=== PATIENT | female | born 1960 | race Caucasian/White ===

== ENCOUNTER 2022-11-24 09:28 | Outpatient (OUT) | payer OTHER, SELFPAY ==
[2022-11-24 10:09] LABS: Estimated Average Glucose 108 mg/dL; Glycohemoglobin A1C 5.4 % (4.5-6.2)
[2022-11-24 10:12] LABS: Basophils Absolute Auto 0.1 10^3/uL (0.0-0.1); Basophils Percent Auto 0.7 % (0.2-2.0); Eosinophils Absolute Auto 0.1 10^3/uL (0.0-0.7); Eosinophils Percent Auto 1.9 % (0.9-7.0); Hemoglobin 14.8 g/dL (12.0-16.0); Immature Granulocytes Abs Auto 0.02 10^3/uL (0.00-0.03); Immature Granulocytes Pct Auto 0.3 % (0.0-0.5); Lymphocytes Absolute Auto 2.1 10^3/uL (1.2-3.8); Lymphocytes Percent Auto 28.1 % (20.5-60.0); Mean Corpuscular HGB Conc 32.9 g/dL (29.9-35.2); Mean Corpuscular Hemoglobin 32.3 pg (26.7-34.0); Mean Corpuscular Volume 98.3 fL (81.0-99.0); Mean Platelet Volume 10.2 fL (9.5-13.5); Monocytes Absolute Auto 0.6 10^3/uL (0.3-0.8); Monocytes Percent Auto 7.7 % (1.7-12.0); Neutrophils Absolute Auto 4.6 10^3/uL (1.4-6.5); Neutrophils Percent Auto 61.3 % (43.0-75.0); Platelet Count 322 10^3/uL (150-450); Red Blood Count 4.58 10^6/uL (4.20-5.40); Red Cell Distribution Width 13.2 % (11.0-15.0); White Blood Count 7.6 10^3/uL (4.0-11.0)
[2022-11-24 10:25] LABS: Alanine Aminotransferase 74 U/L (14-59); Albumin Globulin Ratio 0.8; Albumin Level 3.3 g/dL (3.4-5.0); Alkaline Phosphatase 86 U/L (46-116); Anion Gap 10.9; Aspartate Amino Transferase 36 U/L (15-37); Bilirubin Total 0.5 mg/dL (0.2-1.0); Calcium 9.3 mg/dL (8.5-10.1); Carbon Dioxide 26.1 mmol/L (21.0-32.0); Chloride 104 mmol/L (98-107); Chol HDL Ratio 5.2; Cholesterol 239 mg/dL (<=200); Estimated GFR (African America >60 (>=60); Estimated GFR (Non-African Ame >60 (>=60); Free T3 2.32 pg/mL (2.18-3.98); Glucose 102 mg/dL (74-106); HDL Cholesterol 46 mg/dL (40-60); Sodium 137 mmol/L (136-145); Thyroid Stimulating Hormone 2.595 uIU/mL (0.358-3.740); Total Protein 7.3 g/dL (6.4-8.2); Triglycerides 129 mg/dL (<=150); VLDL CHOLESTEROL 25.8 mg/dL
[2022-11-25 11:09] LABS: Insulin 70.6 uIU/mL (2.6-24.9)
== END 2022-11-24 09:29 | disposition home or self-care (01) ==
PROVIDERS: PCP Family Medicine; Visit Provider Family Medicine
DX: Z00.00 Encounter for general adult medical examination without abnormal findings (principal); E78.5 Hyperlipidemia, unspecified; R73.09 Other abnormal glucose; Z12.12 Encounter for screening for malignant neoplasm of rectum; D64.9 Anemia, unspecified
CPT/HCPCS: 36415; 80053; 80061; 83036; 83525; 83540; 84436; 84443; 84481; 85025

== ENCOUNTER 2022-11-25 14:07 | Outpatient (REF) | payer OTHER, SELFPAY ==
[2022-11-25 15:47] LABS: Occult Blood Negative
== END 2022-11-25 14:08 | disposition home or self-care (01) ==
LOC: LAB 14:07
PROVIDERS: PCP Family Medicine; Visit Provider Family Medicine
DX: Z12.12 Encounter for screening for malignant neoplasm of rectum (principal)
CPT/HCPCS: G0328

== ENCOUNTER 2023-06-01 12:01 | Outpatient (OUT) | payer OTHER, SELFPAY ==
[2023-06-01 13:08] LABS: Bilirubin Urine NEGATIVE (NEGATIVE); Blood Urine NEGATIVE (NEGATIVE); Clarity Urine CLEAR (CLEAR); Color Urine LT. YELLOW (YELLOW); Glucose Urine UA NEGATIVE (NEGATIVE); Ketones Urine NEGATIVE (NEGATIVE); Leukocyte Esterase Urine NEGATIVE (NEGATIVE); Nitrite Urine NEGATIVE (NEGATIVE); Protein Urine NEGATIVE (NEG/TRACE); Specific Gravity Urine 1.025 (1.005-1.025); Urobilinogen Urine 0.2 EU/dL (0.2-1.0)
[2023-06-01 13:16] LABS: Bacteria Urine TRACE #/HPF (NONE SEEN); Cast Seen? NONE SEEN #/LPF (NONE SEEN); Crystals Seen? None Seen #/HPF (None Seen); Mucus Urine TRACE (NONE SEEN); RBC Urine 0-2 #/HPF (0-2); Squamous Epithelial Cell Urine FEW #/LPF (NONE/RARE); WBC Urine 0-2 #/HPF (NONE SEEN)
== END 2023-06-01 12:02 | disposition home or self-care (01) ==
LOC: LAB 12:05
PROVIDERS: PCP Family Medicine; Visit Provider Family Medicine
DX: N39.0 Urinary tract infection, site not specified (principal)
CPT/HCPCS: 81001; 87086

== ENCOUNTER 2023-11-25 09:40 | Outpatient (OUT) | payer OTHER, SELFPAY ==
[2023-11-25 10:28] LABS: Basophils Absolute Auto 0.1 10^3/uL (0.0-0.1); Basophils Percent Auto 0.6 % (0.2-2.0); Eosinophils Absolute Auto 0.2 10^3/uL (0.0-0.7); Eosinophils Percent Auto 2.1 % (0.9-7.0); Hematocrit 45.7 % (36.0-48.0); Hemoglobin 15.2 g/dL (12.0-16.0); Immature Granulocytes Abs Auto 0.02 10^3/uL (0.00-0.03); Immature Granulocytes Pct Auto 0.2 % (0.0-0.5); Lymphocytes Absolute Auto 2.5 10^3/uL (1.2-3.8); Lymphocytes Percent Auto 29.7 % (20.5-60.0); Mean Corpuscular HGB Conc 33.3 g/dL (29.9-35.2); Mean Corpuscular Hemoglobin 33.2 pg (26.7-34.0); Mean Corpuscular Volume 99.8 fL (81.0-99.0); Mean Platelet Volume 10.5 fL (9.5-13.5); Monocytes Absolute Auto 0.8 10^3/uL (0.3-0.8); Monocytes Percent Auto 8.8 % (1.7-12.0); Neutrophils Percent Auto 58.6 % (43.0-75.0); Platelet Count 285 10^3/uL (150-450); Red Blood Count 4.58 10^6/uL (4.20-5.40); Red Cell Distribution Width 13.1 % (11.0-15.0); White Blood Count 8.5 10^3/uL (4.0-11.0)
[2023-11-25 11:04] LABS: Estimated Average Glucose 108 mg/dL; Glycohemoglobin A1C 5.4 % (4.5-6.2)
[2023-11-25 11:18] LABS: Alanine Aminotransferase 72 U/L (14-59); Albumin Globulin Ratio 0.8; Albumin Level 3.2 g/dL (3.4-5.0); Alkaline Phosphatase 89 U/L (46-116); Anion Gap 11.4; Aspartate Amino Transferase 31 U/L (15-37); BUN Creatinine Ratio 24.4; Bilirubin Total 0.5 mg/dL (0.2-1.0); Calcium 9.3 mg/dL (8.5-10.1); Carbon Dioxide 28.9 mmol/L (21.0-32.0); Chloride 105 mmol/L (98-107); Chol HDL Ratio 4.4; Cholesterol 233 mg/dL (<=200); Estimated GFR (African America >60 (>=60); Estimated GFR (Non-African Ame >60 (>=60); Free T3 2.49 pg/mL (2.18-3.98); Globulin 3.9 g/dL; Glucose 104 mg/dL (74-106); HDL Cholesterol 53 mg/dL (40-60); Potassium 4.3 mmol/L (3.5-5.1); Sodium 141 mmol/L (136-145); Thyroid Stimulating Hormone 2.679 uIU/mL (0.358-3.740); Total Protein 7.1 g/dL (6.4-8.2); Triglycerides 130 mg/dL (<=150)
[2023-11-25 14:24] LABS: Internal Control Within Normal Limits; Occult Blood Positive
== END 2023-11-25 09:41 | disposition home or self-care (01) ==
PROVIDERS: PCP Family Medicine; Visit Provider Family Medicine
DX: Z00.00 Encounter for general adult medical examination without abnormal findings (principal); Z12.31 Encounter for screening mammogram for malignant neoplasm of breast; Z80.3 Family history of malignant neoplasm of breast; Z80.51 Family history of malignant neoplasm of kidney; R53.83 Other fatigue
CPT/HCPCS: 36415; 77063; 77067; 80053; 80061; 83036; 83540; 84436; 84443; 84481; 85025; G0328

== ENCOUNTER 2023-11-25 13:46 | Outpatient (OUT) | payer OTHER, SELFPAY ==
--- NOTE | 2023-11-25 13:51 | MM_ITS ---
Patient Name: JESSY BARBER MR#: [id number] : 1960 Exam Date: 11/25/2023 Ordering Doctor: DR NIXON MCINTYRE . RADIOLOGY REPORT PROCEDURE: MM TOMOSYNTHESIS SCREENING BI COMPARISON: MG MAMM SCREEN 3D SOFIA CAD, 03/19/2022. MG MAMM SCREEN 3D SOFIA CAD, 03/06/2021. INDICATIONS: Screening mammogram Calculator Name NCI Breast Cancer Risk Assessment Tool 5 Year Breast Cancer Risk 2.00% Lifetime Breast Cancer Risk 7.60% Personal Breast Cancer No Personal Ovarian Cancer No Treatments None Family Cancers Sister with renal cancer at age ~45; Aunt-paternal with breast cancer at age ~50. LOCATION: [facility] BREAST COMPOSITION: There are scattered areas of fibroglandular density. FINDINGS: DIAGNOSTIC CATEGORY 2--BENIGN FINDING: Scattered benign-appearing calcifications are present. Scattered benign-appearing lymph nodes are present. RIGHT BREAST: No significant suspicious finding. LEFT BREAST: No significant suspicious finding. RECOMMENDATIONS: ROUTINE MAMMOGRAM AND CLINICAL EVALUATION IN 12 MONTHS. PLEASE NOTE: A NORMAL MAMMOGRAM DOES NOT EXCLUDE THE POSSIBILITY OF BREAST CANCER. A CLINICALLY SUSPICIOUS PALPABLE LUMP SHOULD BE BIOPSIED. Dictated by: Josue Gonzalez MD on 11/25/2023 at 15:34 Approved by: Josue Gonzalez MD on 11/25/2023 at 15:35
== END 2023-11-25 13:47 | disposition home or self-care (01) ==
LOC: MAMMO 13:47
PROVIDERS: PCP Family Medicine; Visit Provider Family Medicine
DX: Z12.31 Encounter for screening mammogram for malignant neoplasm of breast (principal); Z80.3 Family history of malignant neoplasm of breast; Z80.51 Family history of malignant neoplasm of kidney
CPT/HCPCS: 77063; 77067

== ENCOUNTER 2023-12-13 13:45 | Outpatient (OUT) | payer OTHER, SELFPAY | END 2023-12-13 13:46 | disposition home or self-care (01) | LOC: PST 13:45 | PROVIDERS: PCP Family Medicine; Visit Provider Surgery | DX: Z01.818 Encounter for other preprocedural examination (principal); R19.5 Other fecal abnormalities ==

== ENCOUNTER 2023-12-15 08:42 | Day surgery (SDC) | payer OTHER, SELFPAY ==
--- NOTE | 2023-12-15 | OP_ITS ---
OPERATION DATE: 12/15/2023 PREOPERATIVE DIAGNOSIS: Positive fecal occult blood test. POSTOPERATIVE DIAGNOSIS: Moderate sigmoid diverticulosis. PROCEDURE: Colonoscopy to cecum. SURGEON: Ta Akers M.D. ANESTHESIA: Monitored anesthesia care. ESTIMATED BLOOD LOSS: Zero INDICATIONS AND CONSENT: Patient is a 63-year-old female with recent positive fecal occult blood test. Indications, risks, benefits, alternatives of proceeding with colonoscopy were explained extensively to the patient, including the risks of bleeding, colon perforation or anesthetic complications. All of her questions were answered. Informed consent was obtained. PROCEDURE: Patient brought to the operating room, placed in the left lateral decubitus position. Monitored anesthesia care was provided. Rectal exam was performed which revealed no masses or blood. The scope was inserted into the anal canal. Under direct visualization was advanced. She was noted to have a tortuous sigmoid colon with moderate sigmoid diverticula. With the aid of abdominal compression, the scope was able to be advanced to the cecum where cecal markings were clearly identified. There was noted to be a good prep. Upon withdrawal of the scope, mucosal surfaces were carefully examined. There were no mass lesions or polyps. No inflammatory changes or ulcerations. There was moderate sigmoid diverticulosis. The scope was retroflexed in the anal canal. There was no significant hemorrhoidal disease. Scope was then withdrawn. Patient tolerated procedure well, was sent to recovery room in good condition. f/u screening colonoscopy should be in 10 years. CC: Holden Benitez M.D. MTDD
--- OUTSIDE RECORDS SUMMARY | 2023-12-15 08:48 | XMS_ITS | CCD ---
Author Organization [facility] Care Team Providers Care Blockmason Name Role Phone DR NIXON BENITEZ Attending Unavailable HOY, DR ALICEA Primary Care Unavailable HOY, DR ALICEA Admitting Unavailable HOKamilah, DR ALICEA Attending Unavailable MIGUELINA, DR ALICEA Consulting Unavailable JASY, DR ALICEA Primary Care Unavailable HOY, DR ALICEA Admitting Unavailable HOY, DR ALICEA Consulting Unavailable JASY, DR ALICEA Primary Care Unavailable HOY, DR ALICEA Admitting Unavailable MIGUELINA, DR ALICEA Attending Unavailable MIGUELINA, DR ALICEA Primary Care Unavailable MIGUELINA, DR ALICEA Admitting Unavailable MIGUELINA, DR ALICEA Attending Unavailable Ta CONDE Attending Unavailable Nixon Benitez Referring Unavailable Allergies Allergy Classification Reported Allergen(s) Allergy Type Date of Onset Reaction(s) Facility (2 sources) Penicillins Drug allergy (disorder) 11-30-2014 [facility] Repository (1 source) Penicillin; Translations: [penicillin] Drug Allergy [facility] Repository (1 source) Ramipril; Translations: [Altace] Drug Allergy [facility] Repository Results Test Name Value Interpretation Reference Range Facility Ambulatory Visit Summaryon Ambulatory Visit Summary Ambulatory Visit Summary JESSY BARBER :1960 Visit Date:12/09/2023 Ambulatory Visit Instructions Your Diagnosis Positive fecal occult blood test Your Care Team Attending Physician - Ta CONDE MD Primary Care Physician - Nixon Benitez MD Referring Physician - Nixon Benitez MD This Is Your Medications List Contact prescribing physician if questions or concerns carvedilol (carvedilol 6.25 mg Tab) hydrochlorothiazide (hydrochlorothiazide 12.5 mg Tab) meloxicam (meloxicam 15 mg Tab) multivitamin (Multi Vitamins oral tablet) simvastatin (simvastatin 20 mg Tab) Procedures Performed Appendectomy, Colonoscopy, ABEBE BSO - Total abdominal hysterectomy and bilateral salpingo-oophorectomy. Discharge Vitals Heart Rate (Peripheral) 79 Respiratory Rate 16 Blood Pressure 159/85 Height 167.6 cm Height 66 in Weight 143.1 kg Weight 314.82 lb BMI 50.94 Medications What How Much When Instructions Unchanged carvedilol (carvedilol 6.25 mg Tab) 1 Tablets By Mouth 2 times a day Contact prescribing physician if questions or concerns Unchanged hydrochlorothiazide (hydrochlorothiazide 12.5 mg Tab) 1 Tablets By Mouth Every day Contact prescribing physician if questions or concerns Unchanged meloxicam (meloxicam 15 mg Tab) 1 Tablets By Mouth Every day Contact prescribing physician if questions or concerns Unchanged multivitamin (Multi Vitamins oral tablet) 1 Tablets By Mouth Every day Contact prescribing physician if questions or concerns Unchanged simvastatin (simvastatin 20 mg Tab) 1 Tablets By Mouth Once a day (in the evening) Contact prescribing physician if questions or concerns Allergies Altace (Cough) penicillin (Rash) Problems Ongoing - Any problem that you are currently receiving treatment for. Anxiety BMI 50.0-59.9, adult Class 3 obesity Degeneration of intervertebral disc Essential hypertension Hyperlipidemia Lumbar spondylosis Occult blood positive stool Positive fecal occult blood test Sleep apnea Patient Survey You may receive a survey via text or e-mail asking about your office visit. Please share your experience with us by completing your survey. We appreciate your feedback and thank you for choosing us for your care. [facility] MG MAMM SCREEN 3D SOFIA CADon 03-19-2022 MG MAMM SCREEN 3D SOFIA CAD Patient: JESSY BARBER Exam Date: 03/19/2022 : 1960 Gender:F Ordering : DR NIXON BENITEZ . Admission #: [id number] Family : Order #: [id number] CLICK HERE TO VIEW EXAM RADIOLOGY REPORT PROCEDURE: MAMMOGRAM SCREENING 3D BILATERAL CAD COMPARISON: MG MAMM SCREEN SOFIA W CAD, 03/04/2020. MG MAMM SCREEN SOFIA W CAD, 02/27/2019. DIGITIZED_MAMMO, 09/04/2008. MG MAMM SCREEN 3D SOFIA CAD, 03/06/2021. INDICATIONS: Screening mammography Calculator Name NCI Breast Cancer Risk Assessment Tool 5 Year Breast Cancer Risk 2.00% Lifetime Breast Cancer Risk 7.90% Personal Breast Cancer No Personal Ovarian Cancer No Treatments None Family Cancers Sister with renal cancer at age 45; Aunt-paternal with breast cancer at age 50. LOCATION: [facility] BREAST COMPOSITION: Scattered areas fibroglandular density. FINDINGS: DIAGNOSTIC CATEGORY 2--BENIGN FINDING: RIGHT BREAST: No significant suspicious finding. Scattered benign-appearing nodules are present. No significant change has occurred. LEFT BREAST: No significant suspicious finding. Scattered benign-appearing nodules are present. No significant change has occurred. RECOMMENDATIONS: ROUTINE MAMMOGRAM AND CLINICAL EVALUATION IN 12 MONTHS. PLEASE NOTE: A NORMAL MAMMOGRAM DOES NOT EXCLUDE THE POSSIBILITY OF BREAST CANCER. A CLINICALLY SUSPICIOUS PALPABLE LUMP SHOULD BE BIOPSIED. Dictated by: Deo Wilkes M.D. on 03/20/2022 at 09:12 Approved by: Deo Wilkes M.D. on 03/20/2022 at 09:17 Normal [facility] INSULINon 12-06-2021 Insulin 51.1 uIU/mL Critically high 2.6-24.9 [facility] Comment on above: Performed By: #### I NSULIN #### [facility] [address] [place] [address] Dr. Marco Antonio Butler T4, T3U, FTI LABCORPon 12-06 Free Thyroxine Index 2.1 Normal 1.2-4.9 [facility] Comment on above: Performed By: #### T HYLC #### [facility] [address] [place] [address] Dr. Marco Antonio Butler T3 Uptake 26 % Normal 24-39 [facility] Comment on above: Performed By: #### T HYLC #### [facility] [address] [place] [address] Dr. Marco Antonio Butler T4 [Mass/Vol] 8.0 ug/dL Normal 4.5-12.0 [facility] Comment on above: Performed By: #### T HYLC #### [facility] [address] [place] [address] Dr. Marco Antonio Butler CBC AUTO DIFFon 12-05-2021 BASO # 0.1 103/ul Normal 0.0-0.1 [facility] Comment on above: Performed By: #### C BC #### [facility] [address] [place] [address] Dr. Marco Antonio Butler Basophils/100 WBC (Bld) 0.6 % Normal 0.2-2.0 [facility] Comment on above: Performed By: #### C BC #### [facility] [address] [place] [address] Dr. Marco Antonio Butler EO # 0.2 103/ul Normal 0.0-0.7 [facility] Comment on above: Performed By: #### C BC #### [facility] [address] [place] [address] Dr. Marco Antonio Butler Eosinophils/100 WBC (Bld) 2.4 % Normal 0.9-7.0 [facility] Comment on above: Performed By: #### C BC #### [facility] [address] [place] [address] Dr. Marco Antonio Butler Erythrocyte distribution width (RBC) [Ratio] 13.2 % Normal 11.0-15.0 [facility] Comment on above: Performed By: #### C BC #### [facility] [address] [place] [address] Dr. Marco Antonio Butler Hematocrit (Bld) [Volume fraction] 42.8 % Normal 36.0-48.0 [facility] Comment on above: Performed By: #### C BC #### [facility] [address] [place] [address] Dr. Marco Antonio Butler Hemoglobin (Bld) [Mass/Vol] 14.1 g/dL Normal 12.0-16.0 [facility] Comment on above: Performed By: #### C BC #### [facility] [address] [place] [address] Dr. Marco Antonio Butler IG # 0.03 10e3/ul Normal 0.00-0.03 [facility] Comment on above: Performed By: #### C BC #### [facility] [address] [place] [address] Dr. Marco Antonio Butler IG % 0.4 % Normal 0.0-0.5 [facility] Comment on above: Performed By: #### C BC #### [facility] [address] [place] [address] Dr. Marco Antonio Butler LYMPH # 2.0 103/ul Normal 1.2-3.8 [facility] Comment on above: Performed By: #### C BC #### [facility] [address] [place] [address] Dr. Marco Antonio Butler Lymphocytes/100 WBC (Bld) 25.1 % Normal 20.5-60.0 [facility] Comment on above: Performed By: #### C BC #### [facility] [address] [place] [address] Dr. Marco Antonio Butler MANUAL DIFF REQ NO Normal [facility] Comment on above: Performed By: #### C BC #### [facility] [address] [place] [address] Dr. Marco Antonio Butler MCH (RBC) [Entitic mass] 32.0 pg Normal 26.7-34.0 [facility] Comment on above: Performed By: #### C BC #### [facility] [address] [place] [address] Dr. Marco Antonio Butler MCHC (RBC) [Mass/Vol] 32.9 g/dL Normal 29.9-35.2 [facility] Comment on above: Performed By: #### C BC #### [facility] [address] [place] [address] Dr. Marco Antonio Butler MCV (RBC) [Entitic vol] 97.3 fL Normal 81.0-99.0 [facility] Comment on above: Performed By: #### C BC #### [facility] [address] [place] [address] Dr. Marco Antonio Butler MONO # 0.7 103/ul Normal 0.3-0.8 [facility] Comment on above: Performed By: #### C BC #### [facility] [address] [place] [address] Dr. Marco Antonio Butler Monocytes/100 WBC (Bld) 9.0 % Normal 1.7-12.0 [facility] Comment on above: Performed By: #### C BC #### [facility] [address] [place] [address] Dr. Marco Antonio Butler NEUT # 5.0 103/ul Normal 1.4-6.5 [facility] Comment on above: Performed By: #### C BC #### [facility] [address] [place] [address] Dr. Marco Antonio Butler Neutrophils/100 WBC (Bld) 62.5 % Normal 43.0-75.0 [facility] Comment on above: Performed By: #### C BC #### [facility] [address] [place] [address] Dr. Marco Antonio Butler Platelet mean volume (Bld) [Entitic vol] 10.5 fL Normal 9.5-13.5 [facility] Comment on above: Performed By: #### C BC #### [facility] [address] [place] [address] Dr. Marco Antonio Butler PLT 315 103/ul Normal 150-450 [facility] Comment on above: Performed By: #### C BC #### [facility] [address] [place] [address] Dr. Marco Antonio Butler RBC 4.40 106/ul Normal 4.20-5.40 [facility] Comment on above: Performed By: #### C BC #### [facility] [address] [place] [address] Dr. Marco Antonio Butler WBC 8.0 103/ul Normal 4.0-11.0 [facility] Comment on above: Performed By: #### C BC #### [facility] [address] [place] [address] Dr. Marco Antonio Butler GLYCOHEMOGLOBIN A1Con 2021 ADA RECOMMENDATION SEE BELOW Normal [facility] Comment on above: Result Comment: ADA RECOMMENDED LIMIT 4.0 - 6.0 ADA THERAPEUTIC TARGET < 7.0 ACTION SUGGESTED > 7.0 Performed By: #### A 1C #### [facility] [address] [place] [address] Dr. Marco Antonio Butler Glucose [Mass/Vol] 120 mg/dL Normal [facility] Comment on above: Performed By: #### A 1C #### [facility] [address] [place] [address] Dr. Marco Antonio Butler HbA1c (Bld) [Mass fraction] 5.8 % Normal 4.5-6.2 [facility] Comment on above: Performed By: #### A 1C #### [facility] [address] [address] [address] Marco Antonio Butler IRONon 12-05-2021 Iron [Mass/Vol] 97.0 ug/dL Normal 50.0-170.0 [facility] Comment on above: Performed By: #### I DAVID #### [facility] [address] [address] [address] Marco Antonio Butler LIPID PROFILEon 12-05-2021 CHOL-HDL RATIO NORM SEE BELOW Normal [facility] Comment on above: Result Comment: 3.3 - 4.4 LOW RISK 4.4 - 7.1 AVERAGE RISK 7.1 - 11.0 MODERATE RISK >11.0 HIGH RISK Performed By: #### L IPID, TSH, CMP #### [facility] [address] [address] [address] Marco Antonio Butler Cholesterol [Mass/Vol] 237 mg/dL Critically high <=200 [facility] Comment on above: Performed By: #### L IPID, TSH, CMP #### [facility] [address] [address] [address] Marco Antonio Butler Cholesterol in HDL [Mass/Vol] 44 mg/dL Normal 40-60 [facility] Comment on above: Performed By: #### L IPID, TSH, CMP #### [facility] [address] [address] [address] Marco Antonio Butler Cholesterol in LDL [Mass/Vol] 163.4 mg/dL Normal [facility] Comment on above: Performed By: #### L IPID, TSH, CMP #### [facility] [address] [address] [address] Marco Antonio Butler Cholesterol.total/Ch olesterol in HDL [Mass ratio] 5.4 {ratio} Normal [facility] Comment on above: Performed By: #### L IPID, TSH, CMP #### [facility] [address] [address] [address] Marco Antonio Butler HDL NORMAL > or = 60 mg/dl - LO W CARDIOVASCULAR RISK <40 mg/dl - HIGH CARDIOVASCULAR RISK Normal [facility] Comment on above: Performed By: #### L IPID, TSH, CMP #### [facility] [address] [address] [address] Marco Antonio Butler LDL CALC NORMAL SEE BELOW Normal [facility] Comment on above: Result Comment: <100 mg/dl OPTIMAL 100 - 129 mg/dl NEAR OR ABOVE OPTIMAL 130 - 159 mg/dl BORDERLINE HIGH 160 - 189 mg/dl HIGH >190 mg/dl VERY HIGH Performed By: #### L IPID, TSH, CMP #### [facility] [address] [address] [address] Marco Antonio Butler Triglyceride [Mass/Vol] 148 mg/dL Normal <=150 [facility] Comment on above: Performed By: #### L IPID, TSH, CMP #### [facility] [address] [address] [address] Marco Antonio Butler VLDL CALC 29.6 mg/dL Normal [facility] Comment on above: Performed By: #### L IPID, TSH, CMP #### [facility] [address] [address] [address] Marco Antonio Butler PROF 14(COMP METB)on 022 Albumin [Mass/Vol] 3.3 g/dL Critically low 3.4-5.0 [facility] Comment on above: Performed By: #### L IPID, TSH, CMP #### [facility] [address] [address] [address] Marco Antonio Butler Albumin/Globulin [Mass ratio] 0.9 {ratio} Normal [facility] Comment on above: Performed By: #### L IPID, TSH, CMP #### [facility] [address] [address] [address] Marco Antonio Butler ALP [Catalytic activity/Vol] 90 U/L Normal 46-116 [facility] Comment on above: Performed By: #### L IPID, TSH, CMP #### [facility] [address] [address] [address] Marco Antonio Butler ALT [Catalytic activity/Vol] 53 U/L Normal 14-59 [facility] Comment on above: Performed By: #### L IPID, TSH, CMP #### [facility] [address] [address] [address] Marco Antonio Butler Anion gap [Moles/Vol] 8.3 mmol/L Normal [facility] Comment on above: Performed By: #### L IPID, TSH, CMP #### [facility] [address] [address] [address] Marco Antonio Butler AST [Catalytic activity/Vol] 24 U/L Normal 15-37 [facility] Comment on above: Performed By: #### L IPID, TSH, CMP #### [facility] [address] [place] [address] Dr. Marco Antonio Butler Bilirubin [Mass/Vol] 0.4 mg/dL Normal 0.2-1.0 [facility] Comment on above: Performed By: #### L IPID, TSH, CMP #### [facility] [address] [place] [address] Dr. Marco Antonio Butler Calcium [Mass/Vol] 9.1 mg/dL Normal 8.5-10.1 [facility] Comment on above: Performed By: #### L IPID, TSH, CMP #### [facility] [address] [place] [address] Dr. Marco Antonio Butler Chloride [Moles/Vol] 103 mmol/L Normal 98-107 [facility] Comment on above: Performed By: #### L IPID, TSH, CMP #### [facility] [address] [place] [address] Dr. Marco Antonio Butler CO2 [Moles/Vol] 30.8 mmol/L Normal 21.0-32.0 [facility] Comment on above: Performed By: #### L IPID, TSH, CMP #### [facility] [address] [place] [address] Dr. Marco Antonio Butler Creatinine [Mass/Vol] 0.88 mg/dL Normal 0.55-1.02 [facility] Comment on above: Performed By: #### L IPID, TSH, CMP #### [facility] [address] [address] [address] Marco Antonio Butler EGFR-AF BRITISH >60 Normal >=60 [facility] Comment on above: Performed By: #### L IPID, TSH, CMP #### [facility] [address] [address] [address] Marco Antonio Butler EGFR-NON AF BRITISH >60 Normal >=60 [facility] Comment on above: Performed By: #### L IPID, TSH, CMP #### [facility] [address] [address] [address] Marco Antonio Butler Globulin (S) [Mass/Vol] 3.8 g/dL Normal [facility] Comment on above: Performed By: #### L IPID, TSH, CMP #### [facility] [address] [place] [address] Dr. Marco Antonio Butler Glucose [Mass/Vol] 106 mg/dL Normal 74-106 [facility] Comment on above: Performed By: #### L IPID, TSH, CMP #### [facility] [address] [place] [address] Dr. Marco Antonio Butler Potassium [Moles/Vol] 4.1 mmol/L Normal 3.5-5.1 [facility] Comment on above: Performed By: #### L IPID, TSH, CMP #### [facility] [address] [place] [address] Dr. Marco Antonio Butler Protein [Mass/Vol] 7.1 g/dL Normal 6.4-8.2 [facility] Comment on above: Performed By: #### L IPID, TSH, CMP #### [facility] [address] [place] [address] Dr. Marco Antonio Butler Sodium [Moles/Vol] 138 mmol/L Normal 136-145 [facility] Comment on above: Performed By: #### L IPID, TSH, CMP #### [facility] [address] [place] [address] Dr. Marco Antonio Butler Urea nitrogen [Mass/Vol] 18.0 mg/dL Normal 7.0-18.0 [facility] Comment on above: Performed By: #### L IPID, TSH, CMP #### [facility] [address] [place], [place] [address] Dr. Marco Antonio Butler Urea nitrogen/Creatinine [Mass ratio] 20.5 mg/mg Normal [facility] Comment on above: Performed By: #### L IPID, TSH, CMP #### [facility] [address] [place], [place] [address] Dr. Marco Antonio Butler TSHon 12-05-2021 TSH 2.111 uIU/mL Normal 0.358-3.740 [facility] Comment on above: Performed By: #### L IPID, TSH, CMP #### [facility] [address] [place], [place] [address] Dr. Marco Antonio Butler Encounters Encounter Date Encounter Type Care Provider Facility Start: 12-09-2023 End: 12-09-2023 ambulatory Ta CONDE Facility:[facility] Start: 11-29-2023 ambulatory Ta CONDE Facility:[facility] Start: 03-19-2022 End: 03-20-[address] NIXON BENITEZ Facility:[facility] Start: 01-21-[address] NIXON BENITEZ Facility :[facility] Start: 12-08-2021 Encounter for genera l adult medical examination without abnormal findings DR NIXON BENITEZ [facility] Start: 12-05-2021 End: 12-06-[address] NIXON BENITEZ Facility:[facility] Start: 12-05-2021 End: 12-06-2021 Encounter for general adult medical examination without abnormal findings DR NIXON BENITEZ Facility:[facility] Start: 04-08-[address] NIXON BENITEZ Facility :[facility] Payers Date Payer Category Payer Self-pay 1961 Unknown [id number] 1960 Unknown [id number] 2.16.84 [id number] 1960 Unknown [id number] 2.16.84 [id number] 1960 Unknown [id number] 2.16.84 [id number] 1960 Unknown [id number] 2.16.84 [id number] 1960 Unknown [id number] [id number] Clinical Note 12-09-2023 Note Date & Type Note Facility 12-09-2023 Note General Surgery Offi ce/Clinic Note Chief Complaint consultation for positive occult stool HPI Staff 63 year old female presents on consultation from Dr. Benitez for positive occult stool. Denies abdominal or rectal pain. No rectal bleeding or change in bowel habits. Denies nausea or vomiting. No unexplained weight loss. Last colonoscopy completed many years ago, reported normal per patient. Grandfather with history of colon cancer, age unknown. History of Present Illness 63 yo female with h/o htn, hyperlipidemia, morbid obesity, FANNY, anxiety, lumbar spondylosis, referred for positive fecal occult blood test; denies change in bms or gross blood in stools, no abd complaints; abd operations significant for appendectomy and hysterectomy; no previous colonoscopy; on Meloxicam daily, no asa; no fmhx of GI malignancy or IBD. Review of Systems PHQ Score Initial Depression Screen Score: 0 SCORE ROS - Provider Constitutional: no fever, no sweats, no weight loss. Eyes: no glasses, no blurred vision, no visual loss. ENMT: no dentures, no hoarseness, no swallowing difficulties, no hearing loss, no ear infection(s), no nose bleeds. Cardiovascular: normal blood pressure, no chest pain, regular heartbeat, no heart murmur. Respiratory: no shortness of breath, no cough, no asthma, no wheezing. Gastrointestinal: no nausea, no vomiting, no diarrhea, no constipation, no blood in stool, no change in bowel habits, no abdominal pain, no hepatitis. Genitourinary: no kidney stones, no urine infection, no dysuria. Musculoskeletal: no pain, no weakness. Skin: no changing moles, no rash, no skin lumps. Neurologic: no seizures, no epilepsy, no headache. Psychiatric: no emotional or psychiatric problem. Heme/Lymph: no bleeding problems, no anemia, no blood clots, no transfusions. Allergy/Immunologic: no swollen lymph nodes/glands, no IV drug abuse. Other: Additional ROS info: Except as noted in the above Review of Systems and in the History of Present Illness, all other systems have been reviewed and are negative or noncontributory. Physical Exam Vitals & Measurements HR: 79(Peripheral) RR: 16 BP: 159/85 HT: 66 in HT: 167.6 cm WT: 143.1 kg WT: 314.82 lb BMI: 50.94 HEENT: normal conjunctiva, sclera clear, no scleral icterus, EOM intact, PERRLA, oral mucosa moist without lesions. Neck: trachea midline, no mass, symmetric, no thyromegaly or nodules, no adenopathy Respiratory: lungs CTA, respirations non labored. Cardiovascular: regular rate and rhythm, no murmur, no pedal edema or varicosities. Gastrointestinal: obese,soft, non distended, no tenderness, no masses, no palpable hernias, diastasis recti no, no hepatosplenomegaly; normal bs Lymphatic: no cervical adenopathy, no supraclavicular adenopathy. Musculoskeletal: normal gait, digits and nails without infection, nodes, cyanosis, clubbing. Skin: no rashes, no lesions, no ulcers, no subcutaneous nodules, induration. Psychiatric/Neuro: oriented to time, place, person, judgement normal, affect appropriate for age, insight intact, no focal deficits. Tests: labs reviewed, , review of old records completed , Discussed surgical options, risks, and possible complications with patient. Assessment/Plan 1. Positive fecal occult blood test (R19.5: Other fecal abnormalities) plan colonoscopy under anesthesia for further evaluation, informed consent obtained. Follow-up No qualifying data available Problem List/Past Medical History Ongoing Anxiety BMI 50.0-59.9, adult Class 3 obesity Degeneration of intervertebral disc Essential hypertension Hyperlipidemia Lumbar spondylosis Occult blood positive stool Positive fecal occult blood test Sleep apnea Historical No qualifying data Procedure/Surgical History Appendectomy, Colonoscopy, ABEBE BSO - Total abdominal hysterectomy and bilateral salpingo-oophorectomy. Medications carvedilol 6.25 mg Tab, 6.25 mg= 1 tab(s), Oral, BID hydrochlorothiazide 12.5 mg Tab, 12.5 mg= 1 tab(s), Oral, Daily meloxicam 15 mg Tab, 15 mg= 1 tab(s), Oral, Daily Multi Vitamins oral tablet, 1 tab(s), Oral, Daily simvastatin 20 mg Tab, 20 mg= 1 tab(s), Oral, qPM Allergies Altace (Cough) penicillin (Rash) Social History Alcohol - Denies Alcohol Use, 12/09/2023 Substance Abuse - Denies Substance Abuse, 12/09/2023 Tobacco Never (less than 100 in lifetime) Tobacco Use:. Never Smokeless Tobacco Use:., 12/09/2023 Family History Heart disease: Mother, Father and Brother. Hypertension: Brother. Renal cell carcinoma: Sister and Brother. [facility] Comment on above: Result Comment: Elec tronically Signed By: Ta CONDE MD.dick\Date and Time Signed: 12/09/23 15:33 EDT Summary Purpose Family History No Family History Records FoundNo Family History Records Found Advance Directives No Advanced Directives Records FoundNo Advanced Directives Records Found Additional Source Comments INFORMATION SOURCE (unrecogn ized section and content) DATE CREATED AUTHOR 03/20/2022 [facility] DATE CREATED AUTHOR AUTHOR'S ORGANIZ ATION 12/11/2023 [facility] FOR RECORDS PERTAINING TO PATIENTS WHO ARE OR HAVE BEEN ENROLLED IN A CHEMICAL DEPENDENCY/SUBSTANCEABUSE PROGRAM, SOME INFORMATION MAY BE OMITTED. This clinical summary was aggregated from multiple sources. Caution should be exercised in using it in the provision of clinical care. This summary normalizes information from multiple sources, and as a consequence, information in this document may materially change the coding, format and clinical context of patient data. In addition, data may be omitted in some cases. CLINICAL DECISIONS SHOULD BE BASED ON THE PRIMARY CLINICAL RECORDS. [employer] provides no warranty or guarantee of the accuracy or completeness of information in this document.
[2023-12-15 08:55] VITALS: BP 174/91; PULSE 89; TEMP 36; O2SAT 98; BMI 56.0
[2023-12-15] MEDS: 0.9 % SODIUM CHLORIDE 500 ML 50 ML IV (09:28)
[2023-12-15 11:12] VITALS: BP 127/67; PULSE 78; TEMP 36.8; O2SAT 97
[2023-12-15 11:27] VITALS: BP 105/72; PULSE 77; O2SAT 98
[2023-12-15 11:42] VITALS: BP 165/101; PULSE 72; O2SAT 98
== END 2023-12-15 11:42 | disposition home or self-care (01) ==
PROVIDERS: PCP Family Medicine; Visit Provider Surgery
PROC: (CPT 811; principal; 2023-12-15 09:50)
DX: R19.5 Other fecal abnormalities (principal); K57.30 Diverticulosis of large intestine without perforation or abscess without bleeding; Z80.0 Family history of malignant neoplasm of digestive organs; I10 Essential (primary) hypertension; E78.5 Hyperlipidemia, unspecified; E66.01 Morbid (severe) obesity due to excess calories; M47.816 Spondylosis without myelopathy or radiculopathy, lumbar region; Z90.710 Acquired absence of both cervix and uterus; Z68.43 Body mass index [BMI] 50.0-59.9, adult; G47.33 Obstructive sleep apnea (adult) (pediatric)
CPT/HCPCS: 00811; 45378; J2704

== ENCOUNTER 2024-02-25 10:13 | Outpatient (OUT) | payer OTHER, SELFPAY ==
--- OUTSIDE RECORDS SUMMARY | 2024-02-25 10:23 | XMS_ITS | CCD ---
Author Organization [facility] Care Team Providers Care Bell Attendant Name Role Phone DR NIXON BENITEZ Attending Unavailable JASY, DR ALICEA Primary Care Unavailable MIGUELINA, DR ALICEA Admitting Unavailable JASY, DR ALICEA Attending Unavailable MIGUELINA, DR ALICEA Consulting Unavailable JASY, DR ALICEA Primary Care Unavailable JASY, DR ALICEA Admitting Unavailable JASY, DR ALICEA Consulting Unavailable MIGUELINA, DR ALICEA Primary Care Unavailable MIGUELINA, DR ALICEA Admitting Unavailable MIGUELINA, DR ALICEA Attending Unavailable MIGUELINA, DR ALICEA Primary Care Unavailable MIGUELINA, DR ALICEA Admitting Unavailable MIGUELINA, DR ALICEA Attending Unavailable Nixon Benitez Primary Care Physician [phone] Ta CONDE Attending Unavailable Nixon Benitez Referring Unavailable Ta CONDE Attending Unavailable Allergies Allergy Classification Reported Allergen(s) Allergy Type Date of Onset Reaction(s) Facility (2 sources) Penicillins Drug allergy (disorder) 5 [facility] Repository (2 sources) Penicillin; Translations: [penicillin] Drug Allergy Eruption of skin (disorder) [facility] (2 sources) Ramipril; Translations: [ramipril] Drug Allergy Cough (finding) [facility] Medications Current Medications Medication Drug Class(es) Dates Sig (Normalized) Sig (Original) carvedilol 6.25 mg oral tablet (1 source) alpha-Adrenergic Valerie, beta-Adrenergic Valerie Start: 4 take 1 tablet by mouth twice daily carvedilol 6.25 mg Tab 6.25 mg = 1 tab(s), Oral, BID, Refills(s) 0 Start Date: 12/01/23 Status: Ordered hydroCHLOROthiazide 12.5 mg oral tablet (1 source) Thiazide Diuretic Start: 4 take 1 tablet by mouth once daily hydrochlorothiazide 12.5 mg Tab 12.5 mg = 1 tab(s), Oral, Daily, Refills(s) 0 Start Date: 12/01/23 Status: Ordered meloxicam 15 mg oral tablet (1 source) Nonsteroidal Anti-inflammator y Drug Start: 4 take 1 tablet by mouth once daily meloxicam 15 mg Tab 15 mg = 1 tab(s), Oral, Daily, Refills(s) 0 Start Date: 12/01/23 Status: Ordered Multi Vitamins oral tablet (1 source) Start: 4 take 1 tablet by mouth once daily Multi Vitamins oral tablet 1 tab(s), Oral, Daily, Refill(s) 0 Start Date: 12/01/23 Status: Ordered simvastatin 20 mg oral tablet (1 source) HMG-CoA Reductase Inhibitor Start: 4 take 1 tablet by mouth once daily in the evening simvastatin 20 mg Tab 20 mg = 1 tab(s), Oral, qPM, Refills(s) 0 Start Date: 12/01/23 Status: Ordered Problems Problem Classification Problem Date Documented Da te Episodic/Chronic Anxiety disorders (1 source) Anxiety 12-01-2023 Chronic Disorders of lipid metabolism (1 source) Hyperlipidemia 12-01-2023 Chronic Essential hypertension (1 source) Essential hypertension 12-01-2023 Chronic Other gastrointestinal disorders (1 source) Abnormal feces; Translations: [Other fecal abnormalities] Onset: 12-09-2023 Episodic Other gastrointestinal disorders (2 sources) Occult blood in stools 12-01-2023 Episodic Other nutritional; endocrine; and metabolic disorders (1 source) Body mass index 40+ - severely obese 12-01-2023 Chronic Other nutritional; endocrine; and metabolic disorders (1 source) Obese class III 12-01-2023 Chronic Residual codes; unclassified (1 source) Sleep apnea 12-01-2023 Chronic Spondylosis; intervertebral disc disorders; other back problems (2 sources) Degeneration of intervertebral disc; Translations: [Lumbar spondylosis] 12-01-2023 Chronic Results Test Name Value Interpretation Reference Range Facility Reminderson 12-16-2023 Reminders Reminders From: Emilie Baker LPN To: FELECIAN - Clinical; Sent: 12/16/2023 14:07:30 EDT Show up: 11/14/2033 07:00:00 EDT Subject: colonoscopy recall Due Date/Time: 12/14/2033 07:00:00 EDT Reminder/Recall Patient due for screening colonoscopy 12/14/2033. Ayla Harvey [facility] Ambulatory Visit Summaryon 1 Ambulatory Visit Summary Ambulatory Visit Summary JESSY BARBER :1960 Visit Date:12/09/2023 Ambulatory Visit Instructions Your Diagnosis Positive fecal occult blood test Your Care Team Attending Physician - AMAYA VARGAS, Ta Lujan Primary Care Physician - Nixon Benitez MD [...] you for choosing us for your care. Normal [facility] MG MAMM SCREEN 3D SOFIA CADon 03-19-2022 MG MAMM SCREEN 3D SOFIA CAD Patient: JESSY BARBER Exam Date: 03/19/2022 : 1960 Gender:F Ordering : DR NIXON BENITEZ . Admission #: [id number] Family : Order #: [id number] CLICK HERE TO VIEW EXAM RADIOLOGY REPORT [...] breast cancer at age 48. LOCATION: [facility] BREAST COMPOSITION: Scattered areas fibroglandular density. [...] M.D. on 03/20/2022 at 09:17 Normal [facility] INSULINon 12-06-2021 Insulin 51.1 uIU/mL Critically high 2.6-24.[address] [facility] Comment on above: Performed By: #### I NSULIN #### [facility] [address] [address] [address] Marco Antonio Butler T4, T3U, FTI LABCORPon 12-06 Free Thyroxine Index 2.1 Normal 1.2-4.9 [facility] Comment on above: Performed By: #### T HYLC #### [facility] [address] [place] [address] Dr. Marco Antonio Butler T3 Uptake 26 % Normal 24-39 [facility] Comment on above: Performed By: #### T HYLC #### [facility] [address] [place] [address] Dr. Marco Antonio Butler T4 [Mass/Vol] 8.0 ug/dL Normal 4.5-12.0 [facility] Comment on above: Performed By: #### T HYLC #### [facility] [address] [place] [address] Dr. Marco Antonio Butler CBC AUTO DIFFon 12-05-2021 BASO # 0.1 103/ul Normal 0.0-0.1 [facility] Comment on above: Performed By: #### C BC #### [facility] [address] [place] [address] Dr. Marco Antonio Butler Basophils/100 WBC (Bld) 0.6 % Normal 0.2-2.0 [facility] Comment on above: Performed By: #### C BC #### [facility] [address] [place] [address] Dr. Marco Antonio Butler EO # 0.2 103/ul Normal 0.0-0.7 [facility] Comment on above: Performed By: #### C BC #### [facility] [address] [place] [address] Dr. Marco Antonio Butler Eosinophils/100 WBC (Bld) 2.4 % Normal 0.9-7.0 [facility] Comment on above: Performed By: #### C BC #### [facility] [address] [place] [address] Dr. Marco Antonio Butler Erythrocyte distribution width (RBC) [Ratio] 13.2 % Normal 11.0-15.0 [facility] Comment on above: Performed By: #### C BC #### [facility] [address] [place] [address] Dr. Marco Antonio Butler Hematocrit (Bld) [Volume fraction] 42.8 % Normal 36.0-48.0 [facility] Comment on above: Performed By: #### C BC #### [facility] [address] [place] [address] Dr. Marco Antonio Butler Hemoglobin (Bld) [Mass/Vol] 14.1 g/dL Normal 12.0-16.0 [facility] Comment on above: Performed By: #### C BC #### [facility] [address] [place] [address] Dr. Marco Antonio Butler IG # 0.03 10e3/ul Normal 0.00-0.03 [facility] Comment on above: Performed By: #### C BC #### [facility] [address] [place] [address] Dr. Marco Antonio Butler IG % 0.4 % Normal 0.0-0.5 [facility] Comment on above: Performed By: #### C BC #### [facility] [address] [place] [address] Dr. Marco Antonio Butler LYMPH # 2.0 103/ul Normal 1.2-3.8 [facility] Comment on above: Performed By: #### C BC #### [facility] [address] [place] [address] Dr. Marco Antonio Butler Lymphocytes/100 WBC (Bld) 25.1 % Normal 20.5-60.0 [facility] Comment on above: Performed By: #### C BC #### [facility] [address] [place] [address] Dr. Marco Antonio Butler MANUAL DIFF REQ NO Normal [facility] Comment on above: Performed By: #### C BC #### [facility] [address] [place] [address] Dr. Marco Antonio Butler MCH (RBC) [Entitic mass] 32.0 pg Normal 26.7-34.0 [facility] Comment on above: Performed By: #### C BC #### [facility] [address] [place] [address] Dr. Marco Antonio Butler MCHC (RBC) [Mass/Vol] 32.9 g/dL Normal 29.9-35.2 [facility] Comment on above: Performed By: #### C BC #### [facility] [address] [address] [address] Marco Antonio Butler MCV (RBC) [Entitic vol] 97.3 fL Normal 81.0-99.0 [facility] Comment on above: Performed By: #### C BC #### [facility] [address] [address] [address] Marco Antonio Butler MONO # 0.7 103/ul Normal 0.3-0.8 [facility] Comment on above: Performed By: #### C BC #### [facility] [address] [address] [address] Marco Antonio Butler Monocytes/100 WBC (Bld) 9.0 % Normal 1.7-12.0 [facility] Comment on above: Performed By: #### C BC #### [facility] [address] [address] [address] Marco Antonio Butler NEUT # 5.0 103/ul Normal 1.4-6.5 [facility] Comment on above: Performed By: #### C BC #### [facility] [address] [address] [address] Marco Antonio Butler Neutrophils/100 WBC (Bld) 62.5 % Normal 43.0-75.0 [facility] Comment on above: Performed By: #### C BC #### [facility] [address] [address] [address] Marco Antonio Butler Platelet mean volume (Bld) [Entitic vol] 10.5 fL Normal 9.5-13.5 [facility] Comment on above: Performed By: #### C BC #### [facility] [address] [address] [address] Marco Antonio Butler PLT 315 103/ul Normal 150-450 [facility] Comment on above: Performed By: #### C BC #### [facility] [address] [address] [address] Marco Antonio Butler RBC 4.40 106/ul Normal 4.20-5.40 [facility] Comment on above: Performed By: #### C BC #### [facility] [address] [address] [address] Marco Antonio Butler WBC 8.0 103/ul Normal 4.0-11.0 [facility] Comment on above: Performed By: #### C BC #### [facility] [address] [address] [address] Marco Antonio Butler GLYCOHEMOGLOBIN A1Con 2021 ADA RECOMMENDATION SEE BELOW Normal [facility] Comment on above: Result Comment: ADA RECOMMENDED LIMIT 4.0 - 6.0 ADA THERAPEUTIC TARGET < 7.0 ACTION SUGGESTED > 7.0 Performed By: #### A 1C #### [facility] [address] [place] [address] Dr. Marco Antonio Butler Glucose [Mass/Vol] 120 mg/dL Normal [facility] Comment on above: Performed By: #### A 1C #### [facility] [address] [place] [address] Dr. Marco Antonio Butler HbA1c (Bld) [Mass fraction] 5.8 % Normal 4.5-6.2 [facility] Comment on above: Performed By: #### A 1C #### [facility] [address] [place] [address] Dr. Marco Antonio Butler IRONon 12-05-2021 Iron [Mass/Vol] 97.0 ug/dL Normal 50.0-170.0 [facility] Comment on above: Performed By: #### I DAVID #### [facility] [address] [place] [address] Dr. Marco Antonio Butler LIPID PROFILEon 12-05-2021 CHOL-HDL RATIO NORM SEE BELOW Normal [facility] Comment on above: Result Comment: 3.3 - 4.4 LOW RISK 4.4 - 7.1 AVERAGE RISK 7.1 - 11.0 MODERATE RISK >11.0 HIGH RISK Performed By: #### L IPID, TSH, CMP #### [facility] [address] [place] [address] Dr. Marco Antonio Butler Cholesterol [Mass/Vol] 237 mg/dL Critically high <=200 [facility] Comment on above: Performed By: #### L IPID, TSH, CMP #### [facility] [address] [address] [address] Marco Antonio Butler Cholesterol in HDL [Mass/Vol] 44 mg/dL Normal 40-60 [facility] Comment on above: Performed By: #### L IPID, TSH, CMP #### [facility] [address] [address] [address] Marco Antonio Butler Cholesterol in LDL [Mass/Vol] 163.4 mg/dL Normal [facility] Comment on above: Performed By: #### L IPID, TSH, CMP #### [facility] [address] [address] [address] Marco Antonio Butler Cholesterol.total/Ch olesterol in HDL [Mass ratio] 5.4 {ratio} Normal [facility] Comment on above: Performed By: #### L IPID, TSH, CMP #### [facility] [address] [address] [address] Marco Antonio Butler HDL NORMAL > or = 60 mg/dl - LO W CARDIOVASCULAR RISK <40 mg/dl - HIGH CARDIOVASCULAR RISK Normal [facility] Comment on above: Performed By: #### L IPID, TSH, CMP #### [facility] [address] [address] [address] Marco Antonio Butler LDL CALC NORMAL SEE BELOW Normal [facility] Comment on above: Result Comment: <100 mg/dl OPTIMAL 100 - 129 mg/dl NEAR OR ABOVE OPTIMAL 130 - 159 mg/dl BORDERLINE HIGH 160 - 189 mg/dl HIGH >190 mg/dl VERY HIGH Performed By: #### L IPID, TSH, CMP #### [facility] [address] [place] [address] Dr. Marco Antonio Butler Triglyceride [Mass/Vol] 148 mg/dL Normal <=150 [facility] Comment on above: Performed By: #### L IPID, TSH, CMP #### [facility] [address] [place] [address] Dr. Marco Antonio Butler VLDL CALC 29.6 mg/dL Normal [facility] Comment on above: Performed By: #### L IPID, TSH, CMP #### [facility] [address] [address] [address] Marco Antonio Butler PROF 14(COMP METB)on 022 Albumin [Mass/Vol] 3.3 g/dL Critically low 3.4-5.0 [facility] Comment on above: Performed By: #### L IPID, TSH, CMP #### [facility] [address] [address] [address] Marco Antonio Butler Albumin/Globulin [Mass ratio] 0.9 {ratio} Normal [facility] Comment on above: Performed By: #### L IPID, TSH, CMP #### [facility] [address] [address] [address] Marco Antonio Butler ALP [Catalytic activity/Vol] 90 U/L Normal 46-116 [facility] Comment on above: Performed By: #### L IPID, TSH, CMP #### [facility] [address] [address] [address] Marco Antonio Butler ALT [Catalytic activity/Vol] 53 U/L Normal 14-59 [facility] Comment on above: Performed By: #### L IPID, TSH, CMP #### [facility] [address] [address] [address] Marco Antonio Butler Anion gap [Moles/Vol] 8.3 mmol/L Normal [facility] Comment on above: Performed By: #### L IPID, TSH, CMP #### [facility] [address] [address] [address] Marco Antonio uBtler AST [Catalytic activity/Vol] 24 U/L Normal 15-37 [facility] Comment on above: Performed By: #### L IPID, TSH, CMP #### [facility] [address] [address] [address] Marco Antonio Butler Bilirubin [Mass/Vol] 0.4 mg/dL Normal 0.2-1.0 [facility] Comment on above: Performed By: #### L IPID, TSH, CMP #### [facility] [address] [address] [address] Marco Antonio Butler Calcium [Mass/Vol] 9.1 mg/dL Normal 8.5-10.1 [facility] Comment on above: Performed By: #### L IPID, TSH, CMP #### [facility] [address] [address] [address] Marco Antonio Butler Chloride [Moles/Vol] 103 mmol/L Normal 98-107 [facility] Comment on above: Performed By: #### L IPID, TSH, CMP #### [facility] [address] [place] [address] Dr. Marco Antonio Butler CO2 [Moles/Vol] 30.8 mmol/L Normal 21.0-32.0 [facility] Comment on above: Performed By: #### L IPID, TSH, CMP #### [facility] [address] [place] [address] Dr. Marco Antonio Butler Creatinine [Mass/Vol] 0.88 mg/dL Normal 0.55-1.02 [facility] Comment on above: Performed By: #### L IPID, TSH, CMP #### [facility] [address] [place] [address] Dr. Marco Antonio Butler EGFR-AF CHADIAN >60 Normal >=60 [facility] Comment on above: Performed By: #### L IPID, TSH, CMP #### [facility] [address] [place] [address] Dr. Marco Antonio Butler EGFR-NON AF CHADIAN >60 Normal >=60 [facility] Comment on above: Performed By: #### L IPID, TSH, CMP #### [facility] [address] [place] [address] Dr. Marco Antonio Butler Globulin (S) [Mass/Vol] 3.8 g/dL Normal [facility] Comment on above: Performed By: #### L IPID, TSH, CMP #### [facility] [address] [place] [address] Dr. Marco Antonio Butler Glucose [Mass/Vol] 106 mg/dL Normal 74-106 [facility] Comment on above: Performed By: #### L IPID, TSH, CMP #### [facility] [address] [place] [address] Dr. Marco Antonio Butler Potassium [Moles/Vol] 4.1 mmol/L Normal 3.5-5.1 [facility] Comment on above: Performed By: #### L IPID, TSH, CMP #### [facility] [address] [place] [address] Dr. Marco Antonio Butler Protein [Mass/Vol] 7.1 g/dL Normal 6.4-8.2 [facility] Comment on above: Performed By: #### L IPID, TSH, CMP #### [facility] [address] [place] [address] Dr. Marco Antonio Butler Sodium [Moles/Vol] 138 mmol/L Normal 136-145 [facility] Comment on above: Performed By: #### L IPID, TSH, CMP #### [facility] [address] [place] [address] Dr. Marco Antonio Butler Urea nitrogen [Mass/Vol] 18.0 mg/dL Normal 7.0-18.0 [facility] Comment on above: Performed By: #### L IPID, TSH, CMP #### [facility] [address] [place] [address] Dr. Marco Antonio Butler Urea nitrogen/Creatinine [Mass ratio] 20.5 mg/mg Normal [facility] Comment on above: Performed By: #### L IPID, TSH, CMP #### [facility] [address] [place] [address] Dr. Marco Antonio Butler TSHon 12-05-2021 TSH 2.111 uIU/mL Normal 0.358-3.740 [facility] Comment on above: Performed By: #### L IPID, TSH, CMP #### [facility] [address] [place] [address] Dr. Marco Antonio Butler Vital Signs Date Time Vital Sign Value Performing Clinician Marianne whitten 12-09-2023 14:46-0400 Blood Pressure Location Ta CONDE [facility] [place] 12-09-2023 14:46-0400 Diastolic blood pressure 85 mm[Hg] Ta CONDE [facility] [place] 12-09-2023 14:46-0400 Heart rate 79 /min Ta HIGGINSJean [facility] 12-09-2023 14:46-0400 Respiratory rate 16 /min Ta HIGGINSL [facility] 12-09-2023 14:46-0400 Systolic blood pressure 159 mm[Hg] Ta RONALDOL [facility] Encounters Encounter Date Encounter Type Care Provider Facility Start: 12-15-2023 End: 12-15-2023 ambulatory Ta CONDE Facility:CD:[id number] Start: 12-09-2023 End: 12-09-2023 ambulatory Ta CONDE Facility: [place] Start: 12-09-2023 End: 12-09-2023 Patient encounter procedure Ta CONDE [facility] Start: 11-29-2023 ambulatory Ta CONDE Facility:[facility] [place] Start: 03-19-2022 End: 03-20-[address] NIXON BENITEZ Facility:[facility] Start: 01-21-[address] NIXON BENITEZ Facility :[facility] Start: 12-08-2021 Encounter for genera l adult medical examination without abnormal findings DR NIXON BENITEZ [facility] Start: 12-05-2021 End: 12-06-[address] NIXON BENITEZ Facility:[facility] Start: 12-05-2021 End: 12-06-2021 Encounter for general adult medical examination without abnormal findings DR NIXON BENITEZ Facility:[facility] Start: 04-08-[address] NIXON BENITEZ Facility :[facility] Procedures Date Procedure Procedure Detail Performing Clinician Appendectomy Ta CONDE Colonoscopy Ta HIGGINSL Total abdominal hyst erectomy with bilateral salpingo-oophorectomy Ta HIGGINSL Payers Date Payer Category Payer Self-pay 1961 Unknown [id number] 1960 Unknown [id number] [id number] [id number] 1960 Unknown [id number] 2.16.84 [id number] 1960 Unknown [id number] 2.16.84 [id number] 1960 Unknown [id number] 2.16.84 [id number] 1960 Unknown [id number] 2.16.8 [id number] 1960 Unknown [id number] 2.16.8 [id number] Social History Date Type Detail Facility Start: 12-09-2023 Tobacco smoking status Never s moked tobacco (finding) [facility] Tobacco smoking status Never [facility] [place] Sex Assigned At Female [facility] Functional Status Date Assessment Result Facility 12-09-2023 Functional Status N/A [facility] Clinical Note 12-09-2023 Note Date & Type Note Facility 12-09-2023 Note [facility] Surgery Offi ce/Clinic Note Chief Complaint consultation [...] Brother. Renal cell carcinoma: Sister and Brother. [facility] Comment on above: Result Comment: Elec tronically Signed By: AMAYA VARGAS, Ta Gregory\Date and Time Signed: 12/09/23 15:33 EDT Evaluation + Plan note Note Date & Type Note Facility Evaluation + Plan note No data available for this section [facility] [place] Hospital Discharge instructions Note Date & Type Note Facility Hospital Discharge instructions No data available for this section [facility] [place] Progress note Note Date & Type Note Facility Progress note No data available for this section [facility] [place] Summary Purpose Family History No Family History Records Found No data available for this section No Family History Records Found Advance Directives No Advanced Directives Records FoundNo Advanced Directives Records Found Additional Source Comments INFORMATION SOURCE (unrecogn ized section and content) DATE CREATED AUTHOR 03/20/2022 [facility] DATE CREATED AUTHOR AUTHOR'S ORGANIZ ATION 01/04/2024 [facility] Patient Care team informatio n (unrecognized section and content) Personnel Name: Nixon Benitez MD Address: Address: [address] [place] [address] FOR RECORDS PERTAINING TO PATIENTS WHO ARE [...] BE BASED ON THE PRIMARY CLINICAL RECORDS. [facility] [employer] [facility]. provides no warranty or guarantee of the accuracy or completeness of information in this document.
[2024-02-25 12:03] LABS: Alanine Aminotransferase 56 U/L (14-59); Albumin Globulin Ratio 0.8; Alkaline Phosphatase 88 U/L (46-116); Aspartate Amino Transferase 26 U/L (15-37); Bilirubin Direct 0.1 mg/dL (0.0-0.2); Bilirubin Total 0.6 mg/dL (0.2-1.0); Chol HDL Ratio 3.7; Cholesterol 192 mg/dL (<=200); Globulin 3.7 g/dL; HDL Cholesterol 52 mg/dL (40-60); LDL Cholesterol Calculated 119.8 mg/dL; Total Protein 6.7 g/dL (6.4-8.2); Triglycerides 101 mg/dL (<=150); VLDL CHOLESTEROL 20.2 mg/dL
== END 2024-02-25 10:14 | disposition home or self-care (01) ==
LOC: LAB 10:13
PROVIDERS: PCP Family Medicine; Visit Provider Family Medicine
DX: E78.5 Hyperlipidemia, unspecified (principal)
CPT/HCPCS: 36415; 80061; 80076

== ENCOUNTER 2024-11-18 10:10 | Outpatient (OUT) | payer OTHER, SELFPAY ==
--- OUTSIDE RECORDS SUMMARY | 2023-11-25 08:43 | XMS_ITS ---
Author Organization The [facility] in [place] Address [address] [place] [address] Care Team Providers Care Funeral Greeter Name Role Phone Jake Bentiez Primary Care Provider REASON FOR VISIT labs Medications Medication SIG (Take, Route, Fr equency, Duration) Notes Start Date End Date Status Simvastatin 20 MG 1 tablet in the even ing Orally Once a day for 30 day(s) 11/25/2023 Active Problems Problem Type SNOMED Code ICD Code Onset Dates Problem Status W/U Status Risk Notes Problem Hyperlipidemia (17018310) Hyperlipidemia (E78.5) Active confirmed Encounters Encounter Location Date Provider Diagnosis [facility] [address] [place] [address] 11/25/2023 Jake Benitez Hyperlipidemia E78.5 Assessments Encounter Date Diagnosis (ICD Code) Assessment Notes Treatment Notes Treatment Clinical Notes Section Notes 11/25/2023 Hyperlipidemia (ICD-10 - E78.5) Plan Of Treatment Medication Medication Name Sig Start Date Stop Date Notes Simvastatin 20 MG 1 tablet in the even ing Orally Once a day for 30 day(s) 11/25/2023 Pending Test Test Name Order Date LIVER PROFILE 11/25/2023 Lipid Panel 11/25/2023 Progress Notes * Miki BARBERB:1960 ( 63 yo F)Acc No.[id number]:11/25/2023 Patient: Maria Del Rosario KAN :1960 A ge:63 Y S ex:Female Address:[address] [place], [place] [address] [place] [address] * Refills Start Simvastatin Tablet, 20 MG, Orally, 30, 1 tablet in the evening, Once a day, 30 day(s) Subjective: * Chief Complaints: * L abs * Medical History: * Surgical History: * Hospitalization/Major Diagno stic Procedure: * Medications: Objective: * Vitals: * Physical Examination: Assessment: * Assessment: 1. H yperlipidemia - E78.5 (Primary) Plan: * Treatment: 2. O thers Start Simvastatin Tablet, 20 MG, 1 tablet in the evening, Orally, Once a day, 30 day(s), 30. ? * Procedure Codes: * true * Date: Generated for Kayode samson/Rica/Blakeitting on: 0 11/18/2024 10:15 AM EDT
--- OUTSIDE RECORDS SUMMARY | 2023-11-25 12:42 | XMS_ITS ---
Author Organization The [facility] in [place] Address [address] [place] [address] Care Team Providers Care Microsoft Net Developer Name Role Phone Jake Benitez Primary Care Provider Reason For Referral Diagnosis 1 Positive occult stoo l blood test (R19.5) Referral Organization [facility] Referring Provider First Name Jake Referring Provider Last Name Eli Referring Provider Speciality Family [facility] Referred Provider Ta Akers Referred Provider Specialty General Surg addy Referral Priority Routine REASON FOR VISIT + OB- referral sent Encounters Encounter Location Date Provider Diagnosis [facility] [address] [place] [address] 11/25/2023 Jake Eli Positive occult stoo l blood test R19.5 Assessments Encounter Date Diagnosis (ICD Code) Assessment Notes Treatment Notes Treatment Clinical Notes Section Notes 11/25/2023 Positive occult stool blood test (ICD-10 - R19.5) Plan Of Treatment Referrals Referral Date Details 11/26/2023 11/26/2023Ta Progress Notes * Miki BARBERB:1960 ( 63 yo F)Acc No.[id number]:11/25/2023 Patient: Tai AMANDAJuanito MOSELEYa :1960 A ge:63 Y S ex:Female Address:[address] [facility] [place] [address] Subjective: * Chief Complaints: * + OB- referral sent * Medical History: * Surgical History: * Hospitalization/Major Diagno stic Procedure: * Medications: Objective: * Vitals: * Physical Examination: Assessment: * Assessment: 1. P ositive occult stool blood test - R19.5 (Primary) Plan: * Treatment: * Procedure Codes: * true * Date: Generated for Kayode samson/Rica/Wendysmitting on: 0 11/18/2024 10:15 AM EDT Consultation Request Notes Referral Date Referring Provider Referred Provider Not 11/26/2023 Jake Benitez Michael
--- OUTSIDE RECORDS SUMMARY | 2024-02-25 09:13 | XMS_ITS ---
Author Organization [facility] in [place] Address [address] [place] [address] Care Team Providers Care Joy Operator Name Role Phone Jake Benitez Primary Care Provider [phone] REASON FOR VISIT lab results Encounters Encounter Location Date Provider Diagnosis [facility] [address] [place] [address] 02/25/2024 Jkae Benitez Plan Of Treatment No Information Progress Notes * Miki BARBERB:1960 ( 63 yo F)Acc No.[id number]:02/25/2024 Patient: Maria Del Rosario KAN :1960 A ge:63 Y S ex:Female Address:[address] [place] [address] * true * Date: Generated for Kayode samson/Rica/eTransmitting on: 0 11/18/2024 10:16 AM EDT
--- OUTSIDE RECORDS SUMMARY | 2024-11-16 10:00 | XMS_ITS ---
Author Organization [facility] [place] Address [address] [place] [address] Care Team Providers Care Steel Rigger Name Role Phone Jake Benitez Primary Care Provider Allergies Allergen (clinical drug ingredient) Drug/Non Drug Allergy documented on EMR Reaction Allergy Type Onset Date Status ramipril Altace cough Drug Allergy Active Penicillin rash Drug Allergy Active REASON FOR VISIT annual, stressful time a day a friends son and their dog that day asked the same questions many times only that time Medications Medication SIG (Take, Route, Frequency, Duration) Notes Start Date End Date Status Meloxicam 15 MG TAKE 1 TABLET BY MOUTH EVERY DAY FOR 30 DAYS for 30 Active Lancets Ultra Fine A ctive Multivitamin - 1 tablet Orally Once a day Active Lancets - Use as directed once daily for 90 days 11/26/2022 Active Glucometer - Use Glucometer as directed once daily for 365 days 11/26/2022 Active CPAP Active Glucose Test Strips Active Glucose Monitoring Sensor Active hydroCHLOROthiazide 12.5 MG TAKE 1 TABLE T BY MOUTH EVERY DAY IN THE MORNING FOR 90 DAYS for 90 Active Simvastatin 20 MG TAKE 1 TABLET BY MOUTH EVERY DAY IN THE EVENING FOR 30 DAYS for 90 Not-Taking Accu-Chek Guide Test - USE TO TEST BLOOD SUGAR ONCE DAILY for 100 Active Carvedilol 3.125 MG 1 tablet with food Orally Twice a day for 90 days Active Social History Tobacco Use: Social History Observation Description Date Details (start date - stop date) Never Smoker NA - NA Tobacco Use/Smoking Question Answer Notes Patient is a nonsmoker AUDIT-C (Standard) Question Answer Notes Did you have a drink containing alcohol in the p ast year? No Points 0 Interpretation Negative Problems Problem Type SNOMED Code ICD Code Onset Dates Problem Status W/U Status Risk Notes Problem Diabetes mellitus (44253310) Diabetes mellitus (E11.9) Active confirmed Vital Signs Blood pressure systolic 132 mm Hg 11/17/19 25 Blood pressure diastolic 82 mm Hg 025 Height 66 in 11/16/2024 Weight 319.6 lbs 11/16/2024 BMI 51.58 kg/m2 11/16/2024 Encounters Encounter Location Date Provider Diagnosis [facility] [address] [place] [address] 11/16/2024 Jake Benitez Essential hypertensi on I10 ; Sleep apnea G47.30 ; Hip pain M25.559 ; Anxiety F41.9 and Diabetes mellitus E11.9 Assessments Encounter Date Diagnosis (ICD Code) Assessment Notes Treatment Notes Treatment Clinical Notes Section Notes 11/16/2024 Essential hypertension (ICD-10 - I10) 11/16/2024 Sleep apnea (ICD-10 - G47.30) 11/16/2024 Hip pain (ICD-10 - M25.559) 11/16/2024 Anxiety (ICD-10 - F41.9) 11/16/2024 Diabetes mellitus (ICD-10 - E11.9) Plan Of Treatment Medication Medication Name Sig Start Date Stop Date Notes Doxepin HCl 10 MG TAKE 1 CAPSULE BY [facility] EVERY DAY AT BEDTIME FOR 30 DAYS Carvedilol 3.125 MG 1 tablet with food O rally Twice a day for 90 days Pending Test Test Name Order Date HEMOGLOBIN A1C (GLYCO) 11/16/2024 IRON, TOTAL 11/16/2024 LIPID PANEL (CHOL/TRIG/HDL/LDL) 11/17/19 25 Insulin Level 11/16/2024 THYROID PANEL (T4/TSH/FREE T3) 5 MM screening mammo BI 11/16/2024 CMP (COMP MET RYDER) w/eGFR CKD-EPI 2024 CBC WITH DIFF 11/16/2024 Progress Notes * Miki BARBERB:1960 ( 64 yo F)Acc No.[id number]:11/16/2024 UNLOCKED PROGRESS NOTE Progress Note Patient: Maria Del Rosario KAN Provider: Frances Benitez ([facility])MD :1960 A ge:64 Y S ex:Female Date:11/16/2024 Address:[address], [id number] Check In:01:53 PM ESTCheck O ut:02:44 PM EST Subjective: * Chief Complaints: * 1 . Annual. 2. Stressful time a day a friends son and their dog that day asked the same questions many times only that time. * HPI: G eneral: DM - sugars Stress - bad now htn - stable here Arthritis - meds hleps some. D epression Screening: PHQ-2 (2015 Edition) L ittle interest or pleasure in doing things??Not at all F eeling down, depressed, or hopeless? N ot at all T otal Score 0 * ROS: E ENT: hearing changes d enies. v isual changes d enies.?non-healing mouth sores d enies. s wollen glands or neck lumps d enies. h oarseness d enies. s ore throat d enies. d ifficulty swallowing d enies. n ose bleeds d enies. n andry congestion d enies. e ar ache d enies. e ar discharge?denies. r inging in ears d enies. l ight sensitivity d enies. e ye pain d enies. b lurring d enies. e ye irritation d enies. d ouble vision d enies.?vision loss d enies. G eneral/Constitutional: Sweats: D enies. F atigue d enies. S leep problems d enies. A norexia d enies. M alaise d enies. W eight loss d enies.?Fatigue or Weakness d enies. F ever or Chills d enies. C ardiovascular: Shortness of Breath w/lying flat d enies. L ightheadedness/dizziness d enies. C hest tightness/ heavy pressure d enies. S welling of legs, ankles, or feet d enies. W aking up with shortness of breath d enies. C hest pain denies. P alpitations d enies. W eight gain d enies. R espiratory: Chronic or frequent cough d enies. C oughing up blood?denies. D ifficulty breathing d enies. P roductive cough d enies. S noring?denies. S hortness of breath that awakens from sleep (PND) d enies. C hest pain d enies. S putum production d enies. W heezing d enies. M usculoskeletal: Joint pain d enies. J oint Fluid d enies. B ack pain d enies. K nee pain d enies. N ralph pain d enies. J oint Stiffness d enies. M uscle cramps d enies. W eakness of muscles d enies. A rthritis d enies. M uscle aches d enies. P ain in shoulder(s) d enies. S wollen joints d enies. * Medical History: O catalina weight, Well adult, Scoliosis, Lumbar spondylosis, DDD (degenerative disc disease), lumbar, Abdominal pain, right upper quadrant, Low back pain, unspecified, Sleep apnea, Snoring, Ankle edema, Internal derangement of knee, Achilles tendinitis, Sinusitis, Other specified disorders of nose and nasal sinuses, De Quervain's tenosynovitis, left, Chest pain, Hip pain, Essential hypertension, Anxiety, Palpitations, Vertigo, Shoulder pain, unspecified laterality, Bronchitis. * Surgical History: A PPENDECTOMY , HYSTERECTOMY TOTAL , Colonoscopy- Dr Akers 12/15/23. * Hospitalization/Major Diagno stic Procedure: s ee above . * Family History: F ather: , aneurysm, heart issues. M other: alive, Pace Maker. B rother(s): Heart issues- passed from sepsis, Cancer as well, diagnosed with Unspecified essential hypertension. Sister(s): alive, Kidney Cancer, diagnosed with Unspecified essential hypertension. 2 brother(s) , 2 sister(s) . . Also 2 adopted siblings One brother . * Social History: T obacco Use: T obacco Use/Smoking P atient is a n onsmoker D rug/Alcohol: A JAMES-C (Standard) D id you have a drink containing alcohol in the past year? N o P oints 0 I nterpretation N egative * Medications: T aking Accu-Chek Guide Test(Glucose Blood) - Strip USE TO TEST BLOOD SUGAR ONCE DAILY , Taking Carvedilol 6.25 MG Tablet TAKE 1 TABLET BY MOUTH TWICE A DAY WITH FOOD FOR 30 DAYS , Taking CPAP , Taking Doxepin HCl 10 MG Capsule TAKE 1 CAPSULE BY MOUTH EVERY DAY AT BEDTIME FOR 30 DAYS , Taking Glucometer - - Use Glucometer as directed once daily , Taking Glucose Monitoring Sensor , Taking Glucose Test Strips , Taking hydroCHLOROthiazide 12.5 MG Tablet TAKE 1 TABLET BY MOUTH EVERY DAY IN THE MORNING FOR 90 DAYS , Taking Lancets - Miscellaneous Use as directed once daily , Taking Lancets Ultra Fine , Taking Meloxicam 15 MG Tablet TAKE 1 TABLET BY MOUTH EVERY DAY FOR 30 DAYS , Taking Multivitamin(Multiple Vitamin) - Tablet 1 tablet Orally Once a day , Not-Taking/PRN Simvastatin 20 MG Tablet TAKE 1 TABLET BY MOUTH EVERY DAY IN THE EVENING FOR 30 DAYS , Medication List reviewed and reconciled with the patient * Allergies: A ltace: cough, Penicillin: rash. Objective: * Vitals: W t:319.6lbs, Ht: 66 in, BP:132/82mm Hg, BMI:51.58Index, Ht-cm: 167.64 cm, Wt-k.97 kg. * Examination: P hysical Exam: GENERAL: w ell developed, well nourished, in no acute distress. HEAD: n ormocephalic/atraumatic. EYES: p upils equal, round and reactive to light, conjunctivae and sclerae normal. EARS: n o deformity or lesion of external ear, canals and TM appear normal bilaterally, TM's intact, not inflamed with normal light reflex, hearing grossly normal to conversational speech. NOSE: n o deformity, discharge, inflammation, or lesions.? MOUTH: m ucous membranes moist, normal oropharynx and posterior pharynx without lesions or exudates, tongue normal, dentition normal. NECK: n ralph supple, no masses or palpable cervical nodes, trachea midline, thyroid without nodules, masses, tenderness, or enlargement. CHEST: n o chest wall deformity, no chest wall tenderness.? LUNGS: n ormal respiratory effort and clear to auscultation, no wheezes, rales, or rhonchi, good air exchange. CARDIO: r egular rate and rhythm, normal S1 and S2, nor murmur, rub, or gallop. PULSES: n ormal capillary refill. ABDOMEN: s oft, non-distended, non-tender, no masses. MUSCULOSKELETAL: n o deformity or scoliosis noted, normal range of motion, joints normal, no erythema, edema, effusion, or ecchymosis. EXTREMITY: n o clubbing, cyanosis, edema, or deformity with normal ROM in both upper and lower bilateral extremities. NEUROLOGIC: g rossly normal. SKIN: n o rashes, ulcerations, or suspicious lesions. LYMPH NODES: n o cervical adenopathy, nodes normal. MENTAL STATUS: a lert and oriented x3, normal mood and affect. Assessment: * Assessment: 1. E ssential hypertension - I10 (Primary) 2 . S leep apnea - G47.30 ? 3 . H ip pain - M25.559 4 . A nxiety - F41.9 5 .?Diabetes mellitus - E11.9 Plan: * Treatment: 2. S leep apnea L AB: HEMOGLOBIN A1C (GLYCO) L AB: IRON, TOTAL L AB: LIPID PANEL (CHOL/TRIG/HDL/LDL) L AB: Insulin Level L AB: THYROID PANEL (T4/TSH/FREE T3) L AB: CMP (COMP MET RYDER) w/eGFR CKD-EPI L AB: CBC WITH DIFF I maging: MM screening mammo BI 3. H ip pain L AB: HEMOGLOBIN A1C (GLYCO) L AB: IRON, TOTAL L AB: LIPID PANEL (CHOL/TRIG/HDL/LDL) L AB: Insulin Level L AB: THYROID PANEL (T4/TSH/FREE T3) L AB: CMP (COMP MET RYDER) w/eGFR CKD-EPI L AB: CBC WITH DIFF I maging: MM screening mammo BI 4. A nxiety L AB: HEMOGLOBIN A1C (GLYCO) L AB: IRON, TOTAL L AB: LIPID PANEL (CHOL/TRIG/HDL/LDL) L AB: Insulin Level L AB: THYROID PANEL (T4/TSH/FREE T3) L AB: CMP (COMP MET RYDER) w/eGFR CKD-EPI L AB: CBC WITH DIFF I maging: MM screening mammo BI 5. D iabetes mellitus L AB: HEMOGLOBIN A1C (GLYCO) L AB: IRON, TOTAL L AB: LIPID PANEL (CHOL/TRIG/HDL/LDL) L AB: Insulin Level L AB: THYROID PANEL (T4/TSH/FREE T3) L AB: CMP (COMP MET RYDER) w/eGFR CKD-EPI L AB: CBC WITH DIFF I maging: MM screening mammo BI * Preventive Medicine: Screenings/Counseling: B WI ACTION PLAN Above Normal BMI Follow-up D ietary management education, guidance, and counseling F ALL RISK SCREENING Fall Risk Assessment: N o falls in the past year * * Electronic signature of Jake Benitez MD, [phone] on 11/18/2024 at 10:16 AM EDT Sign off status: Pending Visit Status: C HK (Check Out) * Provider: Frances Benitez ([facility])MD Date: 0 11/16/2024 Generated for Printi ng/Faxing/eTransmitting on: 0 11/18/2024 10:16 AM EDT History and Physical Notes * HPI (History of Present Illness) Category Sub-Category Detail Notes Category Not es General DM - sugars Stress - bad now htn - stable here Arthritis - meds hleps some Depression Screening PHQ-2 (2015 Edition) Little interest or pleasure in doing things?: Not at all Feeling down, depressed, or hopeless?: N ot at all Total Score: 0 Examination Category Sub-Category Detail Notes Category Not es Physical Exam GENERAL: well developed, well nourished, in no acute distress HEAD: normocephalic/atraum atic EYES: pupils equal, round and reactive to light, conjunctivae and sclerae normal EARS: no deformity or lesi on of external ear, canals and TM appear normal bilaterally, TM's intact, not inflamed with normal light reflex, hearing grossly normal to conversational speech NOSE: no deformity, discha rge, inflammation, or lesions MOUTH: mucous membranes lamar st, normal oropharynx and posterior pharynx without lesions or exudates, tongue normal, dentition normal NECK: neck supple, no mass es or palpable cervical nodes, trachea midline, thyroid without nodules, masses, tenderness, or enlargement CHEST: no chest wall deform ity, no chest wall tenderness LUNGS: normal respiratory e ffort and clear to auscultation, no wheezes, rales, or rhonchi, good air exchange CARDIO: regular rate and rhy thm, normal S1 and S2, nor murmur, rub, or gallop PULSES: normal capillary ref ill ABDOMEN: soft, non-distended, non-tender, no masses RECTAL: MUSCULOSKELETAL: no deformity or scol iosis noted, normal range of motion, joints normal, no erythema, edema, effusion, or ecchymosis EXTREMITY: no clubbing, cyanosi s, edema, or deformity with normal ROM in both upper and lower bilateral extremities NEUROLOGIC: grossly normal SKIN: no rashes, ulceratio ns, or suspicious lesions LYMPH NODES: no cervical adenopat hy, nodes normal MENTAL STATUS: alert and oriented x 3, normal mood and affect
--- OUTSIDE RECORDS SUMMARY | 2024-11-18 10:16 | XMS_ITS | Patient Health Record ---
Author Organization The [facility] in [place] Address [address] [place] [address] Care Team Providers Care Civil Engineering Draftsperson Name Role Phone Jake Benitez Primary Care Provider Allergies Allergen (clinical drug ingredient) Drug/Non Drug Allergy documented on EMR Reaction Allergy Type Onset Date Status ramipril Altace cough Drug Allergy Active Penicillin rash Drug Allergy Active Results Component Value Reference Range Notes LIVER PROFILE Reviewed date:02/25/2024 01:14:10 PM Interpretation: Performing Lab: Notes/Report: [facility] , Bilirubin Total 0.6 0.2-1.0 mg/dL Bilirubin Direct 0.1 0.0-0.2 mg/dL Aspartate Amino Transferase 26 15-37 U/L Alanine Aminotransferase 56 14-59 U/L Alkaline Phosphatase 88 46-116 U/L Total Protein 6.7 6.4-8.2 g/dL Albumin Level 3.0 3.4-5.0 g/dL Globulin 3.7 Albumin Globulin Ratio 0.8 Performing Lab: see note ML - [facility] LB LIPID PROFILE Reviewed date:02/25/2024 01:14:10 PM Interpretation: Performing Lab: Notes/Report: [facility] , Triglycerides 101 <=150 mg/dL Cholesterol 192 <=200 mg/dL HDL Cholesterol 52 40-60 mg/dL <40 mg/dl - HIGH CARDIOVASCULAR RISK > or =60 mg/dl - LOW CARDIOVASCULAR RISK LDL Cholesterol Calculated 119.8 130-159 mg/dl BORDERLINE HIGH <100 mg/dl OPTIMAL 100-129 mg/dl NEAR OR ABOVE OPTIMAL >190 mg/dl VERY HIGH 160-189 mg/dl HIGH VLDL CHOLESTEROL 20.2 Chol HDL Ratio 3.7 >11.0 HIGH RISK 7.1 - 11.0 MODERATE RISK 4.4 - 7.1 AVERAGE RISK 3.3 - 4.4 LOW RISK Performing Lab: see note ML - [facility] LB Occult Blood* Reviewed date:11/25/2023 04:43:59 PM Interpretation: Performing Lab: Notes/Report: [facility] , Occult Blood Positive Performing Lab: see note ML - [facility] LB TSH Reviewed date:11/25/2023 12:44:29 PM Interpretation: Performing Lab: Notes/Report: [facility] , Thyroid Stimulating Hormone 2.679 0.358-3.740 uIU/mL Performing Lab: see note ML - [facility] T4 Reviewed date:11/25/2023 12:44:29 PM Interpretation: Performing Lab: Notes/Report: [facility] , T4 Thyroxine 8.70 4.80-13.90 ug/dL Performing Lab: see note ML - [facility] LB PROF 14(COMP METB) Reviewed date:11/25/2023 12:44:29 PM Interpretation: Performing Lab: Notes/Report: [facility] , Sodium 141 136-145 mmol/L Potassium 4.3 3.5-5.1 mmol/L Chloride 105 98-107 mmol/L Carbon Dioxide 28.9 21.0-32.0 mmol/L Anion Gap 11.4 Glucose 104 74-106 mg/dL Blood Urea Nitrogen 19.0 7.0-18.0 mg/dL Creatinine 0.78 0.55-1.02 mg/dL Estimated GFR ( Anabell >60 >=60 Estimated GFR (Non- Christianne >60 >=60 BUN Creatinine Ratio 24.4 Calcium 9.3 8.5-10.1 mg/dL Bilirubin Total 0.5 0.2-1.0 mg/dL Aspartate Amino Transferase 31 15-37 U/L Alanine Aminotransferase 72 14-59 U/L Alkaline Phosphatase 89 46-116 U/L Total Protein 7.1 6.4-8.2 g/dL Albumin Level 3.2 3.4-5.0 g/dL Globulin 3.9 Albumin Globulin Ratio 0.8 Performing Lab: see note ML - [facility] LB LIPID PROFILE Reviewed date:11/25/2023 12:44:29 PM Interpretation: Performing Lab: Notes/Report: [facility] , Triglycerides 130 <=150 mg/dL Cholesterol 233 <=200 mg/dL HDL Cholesterol 53 40-60 mg/dL <40 mg/dl - HIGH CARDIOVASCULAR RISK > or =60 mg/dl - LOW CARDIOVASCULAR RISK LDL Cholesterol Calculated 154.0 160-189 mg/dl HIGH <100 mg/dl OPTIMAL 130-159 mg/dl BORDERLINE HIGH >190 mg/dl VERY HIGH 100-129 mg/dl NEAR OR ABOVE OPTIMAL VLDL CHOLESTEROL 26.0 Chol HDL Ratio 4.4 3.3 - 4.4 LOW RISK >11.0 HIGH RISK 7.1 - 11.0 MODERATE RISK 4.4 - 7.1 AVERAGE RISK Performing Lab: see note ML - [facility] LB GLYCOHEMOGLOBIN A1C Reviewed date:11/25/2023 12:44:29 PM Interpretation: Performing Lab: Notes/Report: [facility] , Glycohemoglobin A1C 5.4 4.5-6.2 % > 7.0 ADA RECOMMENDED LIMIT 4.0 - 6.0 ADA THERAPEUTIC TARGET < 7.0 ACTION SUGGESTED Estimated Average Glucose 108 Performing Lab: see note ML - [facility] FREE T3 Reviewed date:11/25/2023 12:44:29 PM Interpretation: Performing Lab: Notes/Report: [facility] , Free T3 2.49 2.18-3.98 pg/mL Performing Lab: see note ML - [facility] CBC AUTO DIFF Reviewed date:11/25/2023 12:44:29 PM Interpretation: Performing Lab: Notes/Report: [facility] , White Blood Count 8.5 4.0-11.0 10 3/uL Red Blood Count 4.58 4.20-5.40 10 6/uL Hemoglobin 15.2 12.0-16.0 g/dL Hematocrit 45.7 36.0-48.0 % Mean Corpuscular Volume 99.8 81.0-99.0 fL Mean Corpuscular Hemoglobin 33.2 26.7-34.0 pg Mean Corpuscular HGB Conc 33.3 29.9-35.2 g/dL Red Cell Distribution Width 13.1 11.0-15.0 % Platelet Count 285 150-450 10 3/uL Mean Platelet Volume 10.5 9.5-13.5 fL Neutrophils Percent Auto 58.6 43.0-75.0 % Lymphocytes Percent Auto 29.7 20.5-60.0 % Monocytes Percent Auto 8.8 1.7-12.0 % Eosinophils Percent Auto 2.1 0.9-7.0 % Basophils Percent Auto 0.6 0.2-2.0 % Immature Granulocytes Pct Auto 0.2 0.0-0.5 % Neutrophils Absolute Auto 5.0 1.4-6.5 10 3/uL Lymphocytes Absolute Auto 2.5 1.2-3.8 10 3/uL Monocytes Absolute Auto 0.8 0.3-0.8 10 3/uL Eosinophils Absolute Auto 0.2 0.0-0.7 10 3/uL Basophils Absolute Auto 0.1 0.0-0.1 10 3/uL Immature Granulocytes Abs Auto 0.02 0.00-0.03 10 3/uL Performing Lab: see note ML - [facility] LB MM tomosynthesis screening B I Reviewed date:11/25/2023 04:43:59 PM Interpretation: Performing Lab: Notes/Report: Source Facility: [place] [address] Mammography Report Signed Patient: MARIA DEL ROSARIO BARBER MR#: [id number] : 1960 Acct:[id number] Age/Sex: 63 / F ADM Date: 11/25/23 Loc: MAMMO Attending Dr: Holden Benitez M.D. Ordering Physician: Holden Benitez M.D. Results: Date of Service: 11/25/23 Follow Up: Procedure(s): MM tomosynthesis screening BI Accession Number(s): [id number] cc: Holden Benitez M.D. Patient Name: MARIA DEL ROSARIO BARBER MR#: [id number] : 1960 Exam Date: 11/25/2023 Ordering Doctor: DR HOLDEN BENITEZ . RADIOLOGY REPORT PROCEDURE: MM TOMOSYNTHESIS SCREENING BI COMPARISON: MG MAMM SCREEN 3D SOFIA CAD, 03/19/2022. MG MAMM SCREEN 3D SOFIA CAD, 03/06/2021. INDICATIONS: Screening mammogram Calculator Name NCI Breast Cancer Risk Assessment Tool 5 Year Breast Cancer Risk 2.00% Lifetime Breast Cancer Risk 7.60% Personal Breast Cancer No Personal Ovarian Cancer No Treatments None Family Cancers Sister with renal cancer at age 45; Aunt-paternal with breast cancer at age 50. LOCATION: [facility] BREAST COMPOSITION: There are scattered areas of fibroglandular density. FINDINGS: DIAGNOSTIC CATEGORY 2--BENIGN FINDING: Scattered benign-appearing calcifications are present. Scattered benign-appearing lymph nodes are present. RIGHT BREAST: No significant suspicious finding. LEFT BREAST: No significant suspicious finding. RECOMMENDATIONS: ROUTINE MAMMOGRAM AND CLINICAL EVALUATION IN 12 MONTHS. PLEASE NOTE: A NORMAL MAMMOGRAM DOES NOT EXCLUDE THE POSSIBILITY OF BREAST CANCER. A CLINICALLY SUSPICIOUS PALPABLE LUMP SHOULD BE BIOPSIED. Dictated by: Josue Gonzalez MD on 11/25/2023 at 15:34 Approved by: Josue Gonzalez MD on 11/25/2023 at 15:35 Dictated By: Josue Gonzalez M.D. Signed By: 11/25/23 1536 DD/ 1536 TD/TT: Licensed Nursing Assistant: [place] [address] Mammography Report Signed Patient: MARIA DEL ROSARIO BARBER MR#: [id number] : 1960 Acct:[id number] Age/Sex: 63 / F ADM Date: 11/25/23 Loc: MAMMO Attending Dr: Dash Benitez M.D. Ordering Physician: Holden Benitez M.D. Results: Date of Service: 11/25/23 Follow Up: Procedure(s): MM tomosynthesis screening BI Accession Number(s): [id number] cc: Holden Benitez M.D. Patient Name: MARIA DEL ROSARIO BARBER MR#: [id number] : 1960 Exam Date: 11/25/2023 Ordering Doctor: DR HOLDEN BENITEZ . RADIOLOGY REPORT PROCEDURE: MM TOMOSYNTHESIS SCREENING BI COMPARISON: MG MAMM SCREEN 3D SOFIA CAD, 03/19/2022. MG MAMM SCREEN 3D SOFIA CAD, 03/06/2021. INDICATIONS: Screeni ng mammogram Calculator Name NCI Breast Cancer Risk Assessment Tool 5 Year Breast Cancer Risk 2.00% Lifetime Breast Canc er Risk 7.60% Personal Breast Canc er No Personal Ovarian Cancer No Treatments None Family Cancers Siste r with renal cancer at age 45; Aunt-paternal with breast cancer at age 50. LOCATION: [facility] BREAST COMPOSITION: There are scattered areas of fibroglandular density. FINDINGS: DIAGNOSTIC CATEGORY 2--BENIGN FINDING: Scattered benign-appearing calcifications are present. Scattered benign-appearing lym ph nodes are present. RIGHT BREAST: No significant suspicious finding. LEFT BREAST: No significant suspicious finding. RECOMMENDATIONS: ROUTINE MAMMOGRAM AN D CLINICAL EVALUATION IN 12 MONTHS. PLEASE NOTE: A ANIBAL L MAMMOGRAM DOES NOT EXCLUDE THE POSSIBILITY OF BREAST CANCER. A CLINICALLY SUSPICIOUS PALPABLE LUMP SHOULD BE BIOPSIED. Dictated by: Josue Gonzalez MD on 11/25/2023 at 15:34 Approved by: Josue Gonzalez MD on 11/25/2023 at 15:35 Dictated By: Josue Gonzalez M.D. Signed By: 11/25/23 1536 DD/ 1536 TD/TT: Licensed Nursing Assistant: [facility] Reviewed date:11/25/2023 12:44:29 PM Interpretation: Performing Lab: Notes/Report: [facility] , [place] 105.0 50.0-170.0 ug/dL Performing Lab: see note ML - [facility] LB Reason For Referral Diagnosis 1 Positive occult stoo l blood test (R19.5) Referral Organization [facility] Referring Provider First Name Jake Referring Provider Last Name Eli Referring Provider Speciality Family Med van Referred Provider Ta Akers Referred Provider Specialty General Surg addy Referral Priority Routine Medications Medication SIG (Take, Route, Frequency, Duration) Notes Start Date End Date Status Glucometer - Use Glucometer as directed once daily for 365 days 11/26/2022 Active CPAP Active Meloxicam 15 MG TAKE 1 TABLET BY MOUTH EVERY DAY FOR 30 DAYS for 30 Active Lancets Ultra Fine A ctive Simvastatin 20 MG TAKE 1 TABLET BY MOUTH EVERY DAY IN THE EVENING FOR 30 DAYS for 90 Not-Taking Accu-Chek Guide Test - USE TO TEST BLOOD SUGAR ONCE DAILY for 100 Active Multivitamin - 1 tablet Orally Once a day Active Glucose Test Strips Active Glucose Monitoring Sensor Active Carvedilol 3.125 MG 1 tablet with food Orally Twice a day for 90 days Active Lancets - Use as directed once daily for 90 days 11/26/2022 Active hydroCHLOROthiazide 12.5 MG TAKE 1 TABLE T BY MOUTH EVERY DAY IN THE MORNING FOR 90 DAYS for 90 Active Social History Tobacco Use: Social History [...] Problem Status W/U Status Risk Notes Problem Disorder of nasal sinus (disorder) (1421096) Other specified disorders of nose and nasal sinuses (J34.89) Active confirmed Problem Palpitations (89196471) Palpitations (R00.2) Active confirmed Problem Snoring (51809775) Snoring (R06.83) Active confirmed Problem Chest pain (65447475) Chest pain (R07.9) Active confirmed Problem Hyperlipidemia (16209466) Hyperlipidemia (E78.5) Active confirmed Problem Anxiety (65794216) Anxiety (F41.9) Active confirmed Problem Essential hypertension (49175607) Essential hypertension (I10) Active confirmed Problem Sleep apnea (82648321) Sleep apnea (G47.30) Active confirmed Problem Vertigo (759316550) Vertigo (R42) Active confirmed Problem Hip pain (91633570) Hip pain (M25.559) Active confirmed Problem Bronchitis (63363980) Bronchitis (J40) Active confirmed Problem Sinusitis (29210885) Sinusitis (J32.9) Active confirmed Problem Acute sinusitis (13444661) Acute sinusitis (J01.90) Active confirmed Problem Well adult (421972237) Well adult (Z00.00) Active confirmed Problem Degenerative disc disease (56621035) DDD (degenerative disc disease), lumbar (M51.36) Active confirmed Problem Scoliosis (022346916) Scoliosis (M41.9) Active confirmed Problem Achilles tendinitis (82479418) Achilles tendinitis (M76.60) Active confirmed Problem Lumbar spondylosis (780773585) Lumbar spondylosis (M47.816) Active confirmed Problem Overweight (494721584) Over weight (E66.3) Active confirmed Problem Right upper quadrant pain (006082969) Abdominal pain, right upper quadrant (R10.11) Active confirmed Problem Radial styloid tenosynovitis (94355602) De Quervain's tenosynovitis, left (M65.4) Active confirmed Problem Ankle edema (36133202) Ankle edema (R60.0) Active confirmed Problem Shoulder joint pain (026586674) Shoulder pain, unspecified laterality (M25.519) Active confirmed Problem Internal derangement of knee (86064871) Internal derangement of knee (M23.90) Active confirmed Problem Acute urinary tract infection (767008214) Acute UTI (N39.0) Active confirmed Problem Diabetes mellitus (38381352) Diabetes mellitus (E11.9) Active confirmed Problem Low back pain (491340460) Low back pain, unspecified (M54.50) Active confirmed Vital Signs Blood pressure diastolic 82 mm Hg 11/16/2024 Height 66 in 11/16/2024 Blood pressure systolic 132 mm Hg 11/16/2024 Weight 319.6 lbs 11/16/2024 BMI 51.58 kg/m2 11/16/2024 Encounters Encounter Location Date Provider Diagnosis [address] [address] 11/25/2023 Jake Benitez Hyperlipidemia E78.[address] [address] 11/25/2023 Jake Benitez Positive occult stoo l blood test R19.[address] [address] 12/10/2023 Jake Benitez [address] [address] 02/25/2024 Jake Grullony [address] [address] 11/24/2023 Jake Benitez Well adult Z00.[address] [address] 11/16/2024 Jake Benitez Essential hypertensi on I10 ; Sleep apnea G47.30 ; Hip pain M25.559 ; Anxiety F41.9 and Diabetes mellitus E11.9 Assessments Encounter Date Diagnosis (ICD Code) Assessment Notes Treatment Notes Treatment Clinical Notes Section Notes 11/24/2023 Well adult (ICD-10 - Z00.00) 11/16/2024 Essential hypertension (ICD-10 - I10) 11/16/2024 Sleep apnea (ICD-10 - G47.30) 11/25/2023 Hyperlipidemia (ICD-10 - E78.5) 11/25/2023 Positive occult stool blood test (ICD-10 - R19.5) 11/16/2024 Hip pain (ICD-10 - M25.559) 11/16/2024 Anxiety (ICD-10 - F41.9) 11/16/2024 Diabetes mellitus (ICD-10 - E11.9) Plan Of Treatment Pending Test Test Name Order Date CMP (COMPLETE METABOLIC PANEL) 3 CMP (COMPLETE METABOLIC PANEL) 4 UA (URINALYSIS, COMPLETE) 05/31/2023 HEMOGLOBIN A1C (GLYCO) 11/23/2022 HEMOGLOBIN A1C (GLYCO) 11/24/2023 HEMOGLOBIN A1C (GLYCO) 11/16/2024 IRON, TOTAL 11/24/2023 IRON, TOTAL 11/23/2022 IRON, TOTAL 11/16/2024 LIPID PANEL (CHOL/TRIG/HDL/LDL) 11/17/19 25 LIPID PANEL (CHOL/TRIG/HDL/LDL) 11/24/19 23 LIPID PANEL (CHOL/TRIG/HDL/LDL) 11/24/19 24 CBC WITH DIFF 11/24/2023 CBC WITH DIFF 11/23/2022 Urinalysis Microscopic 05/31/2023 Insulin Level 11/23/2022 Insulin Level 11/16/2024 STOOL OCCULT BLOOD 11/24/2023 STOOL OCCULT BLOOD 11/23/2022 CULTURE URINE 05/31/2023 LIVER PROFILE 11/25/2023 THYROID PANEL (T4/TSH/FREE T3) 5 THYROID PANEL (T4/TSH/FREE T3) 3 THYROID PANEL (T4/TSH/FREE T3) 4 MM screening mammo BI 11/16/2024 Lipid Panel 11/25/2023 CMP (COMP MET RYDER) w/eGFR CKD-EPI 2024 CBC WITH DIFF 11/16/2024 Insurance Providers Payer Name Payer Address Payer Phone Subscriber Number Group Number Insured Name Patient Relationship to Insured Coverage Start Date Coverage End Date MMO [address] [place], [place] [id number] Ta Barber Spouse - patient is the spouse of the insured 1 Medical (General) History Medical History History ICD Code Over weight E66.3 Well adult Z00.00 Scoliosis M41.9 Lumbar spondylosis M47.816 DDD (degenerative disc disease), lumbar M51.36 Abdominal pain, right upper quadrant R10 .11 Low back pain, unspecified M54.50 Sleep apnea G47.30 Snoring R06.83 Ankle edema R60.0 Internal derangement of knee M23.90 Achilles tendinitis M76.60 Sinusitis J32.9 Other specified disorders of nose and na divina sinuses J34.89 De Quervain's tenosynovitis, left M65.4 Chest pain R07.9 Hip pain M25.559 Essential hypertension I10 Anxiety F41.9 Palpitations R00.2 Vertigo R42 Shoulder pain, unspecified laterality M2 5.519 Bronchitis J40 Surgical History Surgery Date(Month/Year) Colonoscopy- Dr Akers 12/15/23 HYSTERECTOMY TOTAL APPENDECTOMY Hospitalization History Reason Date(Month/Year) see above
--- OUTSIDE RECORDS SUMMARY | 2024-11-18 10:16 | XMS_ITS | Clinical Summary ---
Author Organization [facility] Address [address], [address] [place] [address] Care Team Providers Care Chief Executive Or Managing Director Name Role Phone Holden Benitez MD Primary Care Provider +-0 Allergies Active Allergy Reactions Criticality Noted Date Comments Penicillins 02/10/2019 Medications losartan (COZAAR) 100 MG tablet Take 100 mg by mouth daily Active Family History Medical History Relation Name Comments Heart Disease Father Relation Name Status Comments Father Social History Tobacco Use Types Packs/Day Years Used Date Smoking Tobacco: Never Assessed Smokeless Tobacco: Never Comments Unknown Sex and Gender Information Value Date Recorded Sex Assigned at Not on file Legal Sex Female 10:51 AM EDT Gender Identity Not on file Sexual Orientation Not on file Last Filed Vital Signs Vital Sign Reading Time Taken Comments Blood Pressure - - Pulse - - Temperature 36 C (96.8 F) 02/10/2019 2:57 PM EST Respiratory Rate - - Oxygen Saturation - - Inhaled Oxygen Concentration - - Weight 123.8 kg (273 lb) 02/10/2019 2:57 PM EST Height 167.6 cm (5' 6 ) 02/10/2019 2:57 PM EST Body Mass Index 44.06 02/10/2019 2:57 PM EST Plan of Treatment Not on file Care Teams Chief Executive Or Managing Director Relationship Specialty Start Date End Date Holden Benitez MD [address] [place] [address] PCP - General Family Medicine 12/23/18
--- OUTSIDE RECORDS SUMMARY | 2024-11-18 10:17 | XMS_ITS | CCD ---
Author Organization [facility] Care Team Providers Care Casting Repairer Name Role Phone DR NIXON BENITEZ Attending Unavailable JASY, DR ALICEA Primary Care Unavailable MIGUELINA, DR ALICEA Admitting Unavailable JASY, DR ALICEA Attending Unavailable MIGUELINA, DR ALICEA Consulting Unavailable JASY, DR ALICEA Primary Care Unavailable JASY, DR ALICEA Admitting Unavailable JASY, DR ALICEA Consulting Unavailable MIGUELINA, DR ALICEA Primary Care Unavailable MIGUELINA, DR ALICEA Admitting Unavailable MIGUELINA, DR AILCEA Attending Unavailable MIGUELINA, DR ALICEA Primary Care Unavailable MIGUELINA, DR ALICEA Admitting Unavailable MIGUELINA, DR ALICEA Attending Unavailable Nixon Benitez Primary Care Physician [phone] Ta CONDE Attending Unavailable Nixon Benitez Referring Unavailable Ta CONDE Attending Unavailable Allergies Allergy Classification Reported Allergen(s) Allergy Type Date of Onset Reaction(s) Facility (2 sources) Penicillins Drug allergy (disorder) 5 [facility] Repository (2 sources) Penicillin; Translations: [penicillin] Drug Allergy Eruption of skin (disorder) [facility] (2 sources) Ramipril; Translations: [ramipril] Drug Allergy Cough (finding) [facility] Medications Current Medications Medication Drug Class(es) [...] due for screening colonoscopy 12/14/2033. Ayla Harvey [facility] Ambulatory Visit Summaryon 1 Ambulatory Visit [...] 20 mg Tab) Procedures Performed Appendectomy, Colonoscopy, ABEEB BSO - Total abdominal hysterectomy and bilateral [...] for choosing us for your care. Normal [facility] MG MAMM SCREEN 3D SOFIA CADon 03-19-2022 MG MAMM SCREEN 3D SOFIA CAD Patient: JESSY BARBER Exam Date: 03/19/2022 : 1960 Gender:F Ordering : DR NIXON BENITEZ . Admission #: [id number] Family : Order #: [id number] CLICK HERE TO VIEW EXAM RADIOLOGY REPORT [...] breast cancer at age 48. LOCATION: [facility] BREAST COMPOSITION: Scattered areas fibroglandular density. FINDINGS: [...] M.D. on 03/20/2022 at 09:17 Normal [facility] INSULINon 12-06-2021 Insulin 51.1 uIU/mL Critically high 2.6-24.9 [facility] Comment on above: Performed By: #### I NSULIN #### [facility] [address] [address] [address] Marco Antonio Butler T4, T3U, FTI LABCORPon 12-06 Free Thyroxine Index 2.1 Normal 1.2-4.9 [facility] Comment on above: Performed By: #### T HYLC #### [facility] [address] [place] [address] Dr. Marco Antonio Butler T3 Uptake 26 % Normal 24-39 [facility] Comment on above: Performed By: #### T HYLC #### [facility] [address] [place] [address] Dr. Marco Antonio Butler T4 [Mass/Vol] 8.0 ug/dL Normal 4.5-12.0 [facility] Comment on above: Performed By: #### T HYLC #### [facility] [address] [place] [address] Dr. Marco Antonio Butler CBC AUTO DIFFon 12-05-2021 BASO # 0.1 103/ul Normal 0.0-0.1 [facility] Comment on above: Performed By: #### C BC #### [facility] [address] [place] [address] Dr. Marco Antonio Butler Basophils/100 WBC (Bld) 0.6 % Normal 0.2-2.0 [facility] Comment on above: Performed By: #### C BC #### [facility] [address] [place] [address] Dr. Marco Antonio Butler EO # 0.2 103/ul Normal 0.0-0.7 [facility] Comment on above: Performed By: #### C BC #### [facility] [address] [place] [address] Dr. Marco Antonio Butler Eosinophils/100 WBC (Bld) 2.4 % Normal 0.9-7.0 [facility] Comment on above: Performed By: #### C BC #### [facility] [address] [place] [address] Dr. Marco Antonio Butler Erythrocyte distribution width (RBC) [Ratio] 13.2 % Normal 11.0-15.0 [facility] Comment on above: Performed By: #### C BC #### [facility] [address] [place] [address] Dr. Marco Antonio Butler Hematocrit (Bld) [Volume fraction] 42.8 % Normal 36.0-48.0 [facility] Comment on above: Performed By: #### C BC #### [facility] [address] [place] [address] Dr. Marco Antonio Butler Hemoglobin (Bld) [Mass/Vol] 14.1 g/dL Normal 12.0-16.0 [facility] Comment on above: Performed By: #### C BC #### [facility] [address] [place] [address] Dr. Marco Antonio Butler IG # 0.03 10e3/ul Normal 0.00-0.03 [facility] Comment on above: Performed By: #### C BC #### [facility] [address] [place] [address] Dr. Marco Antonio Butler IG % 0.4 % Normal 0.0-0.5 [facility] Comment on above: Performed By: #### C BC #### [facility] [address] [place] [address] Dr. Marco Antonio Butler LYMPH # 2.0 103/ul Normal 1.2-3.8 [facility] Comment on above: Performed By: #### C BC #### [facility] [address] [place] [address] Dr. Marco Antonio Butler Lymphocytes/100 WBC (Bld) 25.1 % Normal 20.5-60.0 [facility] Comment on above: Performed By: #### C BC #### [facility] [address] [place] [address] Dr. Marco Antonio Butler MANUAL DIFF REQ NO Normal [facility] Comment on above: Performed By: #### C BC #### [facility] [address] [place] [address] Dr. Marco Antonio Butler MCH (RBC) [Entitic mass] 32.0 pg Normal 26.7-34.0 [facility] Comment on above: Performed By: #### C BC #### [facility] [address] [place] [address] Dr. Marco Antonio Butler MCHC (RBC) [Mass/Vol] 32.9 g/dL Normal 29.9-35.2 [facility] Comment on above: Performed By: #### C BC #### [facility] [address] [address] [address] Marco Antonio Butler MCV (RBC) [Entitic vol] 97.3 fL Normal 81.0-99.0 [facility] Comment on above: Performed By: #### C BC #### [facility] [address] [address] [address] Marco Antonio Butler MONO # 0.7 103/ul Normal 0.3-0.8 [facility] Comment on above: Performed By: #### C BC #### [facility] [address] [address] [address] Marco Antonio Butler Monocytes/100 WBC (Bld) 9.0 % Normal 1.7-12.0 [facility] Comment on above: Performed By: #### C BC #### [facility] [address] [address] [address] Marco Antonio Butler NEUT # 5.0 103/ul Normal 1.4-6.5 [facility] Comment on above: Performed By: #### C BC #### [facility] [address] [address] [address] Marco Antonio Butler Neutrophils/100 WBC (Bld) 62.5 % Normal 43.0-75.0 [facility] Comment on above: Performed By: #### C BC #### [facility] [address] [address] [address] Marco Antonio Butler Platelet mean volume (Bld) [Entitic vol] 10.5 fL Normal 9.5-13.5 [facility] Comment on above: Performed By: #### C BC #### [facility] [address] [address] [address] Marco Antonio Butler PLT 315 103/ul Normal 150-450 [facility] Comment on above: Performed By: #### C BC #### [facility] [address] [address] [address] Marco Antonio Butler RBC 4.40 106/ul Normal 4.20-5.40 [facility] Comment on above: Performed By: #### C BC #### [facility] [address] [address] [address] Marco Antonio Butler WBC 8.0 103/ul Normal 4.0-11.0 [facility] Comment on above: Performed By: #### C BC #### [facility] [address] [address] [address] Marco Antonio Butler GLYCOHEMOGLOBIN A1Con 2021 ADA RECOMMENDATION SEE BELOW Normal [facility] Comment on above: Result Comment: ADA RECOMMENDED LIMIT 4.0 - 6.0 ADA THERAPEUTIC TARGET < 7.0 ACTION SUGGESTED > 7.0 Performed By: #### A 1C #### [facility] [address] [place] [address] Dr. Marco Antonio Butler Glucose [Mass/Vol] 120 mg/dL Normal [facility] Comment on above: Performed By: #### A 1C #### [facility] [address] [place] [address] Dr. Marco Antonio Butler HbA1c (Bld) [Mass fraction] 5.8 % Normal 4.5-6.2 [facility] Comment on above: Performed By: #### A 1C #### [facility] [address] [place] [address] Dr. Marco Antonio Butler IRONon 12-05-2021 Iron [Mass/Vol] 97.0 ug/dL Normal 50.0-170.0 [facility] Comment on above: Performed By: #### I DAVID #### [facility] [address] [place] [address] Dr. Marco Antonio Butler LIPID PROFILEon 12-05-2021 CHOL-HDL RATIO NORM SEE BELOW Normal [facility] Comment on above: Result Comment: 3.3 - 4.4 LOW RISK 4.4 - 7.1 AVERAGE RISK 7.1 - 11.0 MODERATE RISK >11.0 HIGH RISK Performed By: #### L IPID, TSH, CMP #### [facility] [address] [place] [address] Dr. Marco Antonio Butler Cholesterol [Mass/Vol] 237 mg/dL Critically high <=200 [facility] Comment on above: Performed By: #### L IPID, TSH, CMP #### [facility] [address] [address] [address] Marco Antonio Butler Cholesterol in HDL [Mass/Vol] 44 mg/dL Normal 40-60 [facility] Comment on above: Performed By: #### L IPID, TSH, CMP #### [facility] [address] [address] [address] Marco Antonio Butler Cholesterol in LDL [Mass/Vol] 163.4 mg/dL Normal [facility] Comment on above: Performed By: #### L IPID, TSH, CMP #### [facility] [address] [address] [address] Marco Antonio Butler Cholesterol.total/Ch olesterol in HDL [Mass ratio] 5.4 {ratio} Normal [facility] Comment on above: Performed By: #### L IPID, TSH, CMP #### [facility] [address] [address] [address] Marco Antonio Butler HDL NORMAL > or = 60 mg/dl - LO W CARDIOVASCULAR RISK <40 mg/dl - HIGH CARDIOVASCULAR RISK Normal [facility] Comment on above: Performed By: #### L IPID, TSH, CMP #### [facility] [address] [address] [address] Marco Antonio Butler LDL CALC NORMAL SEE BELOW Normal [facility] Comment on above: Result Comment: <100 mg/dl OPTIMAL 100 - 129 mg/dl NEAR OR ABOVE OPTIMAL 130 - 159 mg/dl BORDERLINE HIGH 160 - 189 mg/dl HIGH >190 mg/dl VERY HIGH Performed By: #### L IPID, TSH, CMP #### [facility] [address] [place] [address] Dr. Marco Antonio Butler Triglyceride [Mass/Vol] 148 mg/dL Normal <=150 [facility] Comment on above: Performed By: #### L IPID, TSH, CMP #### [facility] [address] [place] [address] Dr. Marco Antonio Butler VLDL CALC 29.6 mg/dL Normal [facility] Comment on above: Performed By: #### L IPID, TSH, CMP #### [facility] [address] [address] [address] Marco Antonio Butler PROF 14(COMP METB)on 022 Albumin [Mass/Vol] 3.3 g/dL Critically low 3.4-5.[address] [facility] Comment on above: Performed By: #### L IPID, TSH, CMP #### [facility] [address] [address] [address] Marco Antonio Butler Albumin/Globulin [Mass ratio] 0.9 {ratio} Normal [facility] Comment on above: Performed By: #### L IPID, TSH, CMP #### [facility] [address] [address] [address] Marco Antonio Butler ALP [Catalytic activity/Vol] 90 U/L Normal 46-116 [facility] Comment on above: Performed By: #### L IPID, TSH, CMP #### [facility] [address] [address] [address] Marco Antonio Butler ALT [Catalytic activity/Vol] 53 U/L Normal 14-59 [facility] Comment on above: Performed By: #### L IPID, TSH, CMP #### [facility] [address] [address] [address] Marco Antonio Butler Anion gap [Moles/Vol] 8.3 mmol/L Normal [facility] Comment on above: Performed By: #### L IPID, TSH, CMP #### [facility] [address] [address] [address] Marco Antonio Butler AST [Catalytic activity/Vol] 24 U/L Normal 15-37 [facility] Comment on above: Performed By: #### L IPID, TSH, CMP #### [facility] [address] [address] [address] Marco Antonio Butler Bilirubin [Mass/Vol] 0.4 mg/dL Normal 0.2-1.0 [facility] Comment on above: Performed By: #### L IPID, TSH, CMP #### [facility] [address] [address] [address] Marco Antonio Butler Calcium [Mass/Vol] 9.1 mg/dL Normal 8.5-10.1 [facility] Comment on above: Performed By: #### L IPID, TSH, CMP #### [facility] [address] [address] [address] Marco Antonio Butler Chloride [Moles/Vol] 103 mmol/L Normal 98-107 [facility] Comment on above: Performed By: #### L IPID, TSH, CMP #### [facility] [address] [place] [address] Dr. Marco Antonio Butler CO2 [Moles/Vol] 30.8 mmol/L Normal 21.0-32.0 [facility] Comment on above: Performed By: #### L IPID, TSH, CMP #### [facility] [address] [place] [address] Dr. Marco Antonio Butler Creatinine [Mass/Vol] 0.88 mg/dL Normal 0.55-1.02 [facility] Comment on above: Performed By: #### L IPID, TSH, CMP #### [facility] [address] [place] [address] Dr. Marco Antonio Butler EGFR-AF JORDANIAN >60 Normal >=60 [facility] Comment on above: Performed By: #### L IPID, TSH, CMP #### [facility] [address] [place] [address] Dr. Marco Antonio Butler EGFR-NON AF JORDANIAN >60 Normal >=60 [facility] Comment on above: Performed By: #### L IPID, TSH, CMP #### [facility] [address] [place] [address] Dr. Marco Antonio Butler Globulin (S) [Mass/Vol] 3.8 g/dL Normal [facility] Comment on above: Performed By: #### L IPID, TSH, CMP #### [facility] [address] [place] [address] Dr. Marco Antonio Butler Glucose [Mass/Vol] 106 mg/dL Normal 74-106 [facility] Comment on above: Performed By: #### L IPID, TSH, CMP #### [facility] [address] [place] [address] Dr. Marco Antonio Butler Potassium [Moles/Vol] 4.1 mmol/L Normal 3.5-5.1 [facility] Comment on above: Performed By: #### L IPID, TSH, CMP #### [facility] [address] [place] [address] Dr. Marco Antonio Butler Protein [Mass/Vol] 7.1 g/dL Normal 6.4-8.2 [facility] Comment on above: Performed By: #### L IPID, TSH, CMP #### [facility] [address] [place] [address] Dr. Marco Antonio Butler Sodium [Moles/Vol] 138 mmol/L Normal 136-145 [facility] Comment on above: Performed By: #### L IPID, TSH, CMP #### [facility] [address] [place] [address] Dr. Marco Antonio Butler Urea nitrogen [Mass/Vol] 18.0 mg/dL Normal 7.0-18.0 [facility] Comment on above: Performed By: #### L IPID, TSH, CMP #### [facility] [address] [place] [address] Dr. Marco Antonio Butler Urea nitrogen/Creatinine [Mass ratio] 20.5 mg/mg Normal [facility] Comment on above: Performed By: #### L IPID, TSH, CMP #### [facility] [address] [place] [address] Dr. Marco Antonio Butler TSHon 12-05-2021 TSH 2.111 uIU/mL Normal 0.358-3.740 [facility] Comment on above: Performed By: #### L IPID, TSH, CMP #### [facility] [address] [place] [address] Dr. Marco Antonio Butler Vital Signs Date Time Vital Sign Value Performing Clinician Marianne whitten 12-09-2023 14:46-0400 Blood Pressure Location Ta CONDE [facility] [place] 12-09-2023 14:46-0400 Diastolic blood pressure 85 mm[Hg] Ta CONDE [facility] [place] 12-09-2023 14:46-0400 Heart rate 79 /min Ta HIGGINSJean [facility] 12-09-2023 14:46-0400 Respiratory rate 16 /min Ta HIGGINSL [facility] 12-09-2023 14:46-0400 Systolic blood pressure 159 mm[Hg] Ta RONALDOL [facility] Encounters Encounter Date Encounter Type Care Provider Facility Start: 12-15-2023 End: 12-15-2023 ambulatory Ta CONDE Facility:CD:[id number] Start: 12-09-2023 End: 12-09-2023 ambulatory Ta CONDE Facility: [place] Start: 12-09-2023 End: 12-09-2023 Patient encounter procedure Ta CONDE [facility] Start: 11-29-2023 ambulatory Ta CONDE Facility:[facility] [place] Start: 03-19-2022 End: 03-20-[address] NIXON BENITEZ Facility:[facility] Start: 01-21-[address] NIOXN BENITEZ Facility :[facility] Start: 12-08-2021 Encounter for genera l adult medical examination without abnormal findings DR NIXON BENITEZ [facility] Start: 12-05-2021 End: 12-06-[address] NIXON [...] Date Payer Category Payer Self-pay 1961 Unknown [id number] 1960 Unknown [id number] 2.16.84 [id number] 1960 Unknown [id number] 2.16.84 [id number] 1960 Unknown [id number] 2.16.84 [id number] 1960 Unknown [id number] 2.16.84 [id number] 1960 Unknown [id number] 2.16.8 [id number] 1960 Unknown [id number] 2.16.8 [id number] Social History Date Type Detail Facility Start: 12-09-2023 Tobacco smoking status Never s moked tobacco (finding) [facility] Tobacco smoking status Never [facility] Sex Assigned At Female [facility] Functional Status Date Assessment Result Facility 12-09-2023 Functional Status N/A [facility] Clinical Note 12-09-2023 Note Date & Type Note Facility 12-09-2023 Note [facility] Surgery Offi ce/Clinic Note Chief Complaint [...] Brother. Renal cell carcinoma: Sister and Brother. [facility] Comment on above: Result Comment: Elec tronically Signed By: AMAYA VARGAS, Ta Gregory\Date and Time Signed: 12/09/23 15:33 EDT Evaluation + Plan note Note Date & Type Note Facility Evaluation + Plan note No data available for this section [facility] [place] [facility] Discharge instructions Note Date & Type Note Facility Hospital Discharge instructions No data available for this section [facility] [place] Progress note Note Date & Type Note Facility Progress note No data available for this section [facility] [place] Summary Purpose Family History No Family History Records Found No data available for this section No Family History Records Found Advance Directives No Advanced Directives Records FoundNo Advanced Directives Records Found Additional Source Comments INFORMATION SOURCE (unrecogn ized section and content) DATE CREATED AUTHOR 03/20/2022 [facility] DATE CREATED AUTHOR AUTHOR'S ORGANIZ ATION 01/04/2024 [facility] Patient Care team informatio n (unrecognized section and content) Personnel Name: Nixon Benitez MD Address: Address: [address] [place] [address] FOR RECORDS PERTAINING TO PATIENTS WHO ARE [...] BE BASED ON THE PRIMARY CLINICAL RECORDS. [facility] [facility]. provides no warranty or guarantee of the accuracy or completeness of information in this document.
[2024-11-18 10:42] LABS: Hematocrit 45.1 % (36.0-48.0); Hemoglobin 15.4 g/dL (12.0-16.0); Immature Granulocytes Abs Auto 0.02 10^3/uL (0.00-0.03); Immature Granulocytes Pct Auto 0.2 % (0.0-0.5); Lymphocytes Absolute Auto 2.0 10^3/uL (1.2-3.8); Mean Corpuscular HGB Conc 34.1 g/dL (29.9-35.2); Mean Corpuscular Hemoglobin 32.7 pg (26.7-34.0); Mean Corpuscular Volume 95.8 fL (81.0-99.0); Platelet Count 321 10^3/uL (150-450); Red Blood Count 4.71 10^6/uL (4.20-5.40); White Blood Count 8.8 10^3/uL (4.0-11.0)
[2024-11-18 11:16] LABS: Alanine Aminotransferase 72 U/L (14-59); Albumin Globulin Ratio 0.8; Albumin Level 3.4 g/dL (3.4-5.0); Alkaline Phosphatase 94 U/L (46-116); Anion Gap 15.4; Aspartate Amino Transferase 35 U/L (15-37); Blood Urea Nitrogen 14.0 mg/dL (7.0-18.0); Calcium 9.0 mg/dL (8.5-10.1); Carbon Dioxide 25.5 mmol/L (21.0-32.0); Chloride 104 mmol/L (98-107); Cholesterol 213 mg/dL (<=200); Estimated GFR (African America >60 (>=60 mL/min/1.73m^2); Estimated GFR (Non-African Ame >60 (>=60 mL/min/1.73m^2); Free T3 2.34 pg/mL (2.18-3.98); Globulin 4.2 g/dL; Glucose 105 mg/dL (74-106); HDL Cholesterol 52 mg/dL (40-60); Potassium 3.9 mmol/L (3.5-5.1); Sodium 141 mmol/L (136-145); Thyroid Stimulating Hormone 2.452 uIU/mL (0.358-3.740); Total Protein 7.6 g/dL (6.4-8.2); Triglycerides 112 mg/dL (<=150); VLDL CHOLESTEROL 22.4 mg/dL
[2024-11-18 11:37] LABS: Iron 101.0 ug/dL (50.0-170.0)
== END 2024-11-18 10:11 | disposition home or self-care (01) ==
PROVIDERS: PCP Family Medicine; Visit Provider Family Medicine
DX: Z00.00 Encounter for general adult medical examination without abnormal findings (principal); E11.9 Type 2 diabetes mellitus without complications; I10 Essential (primary) hypertension; G47.30 Sleep apnea, unspecified; M25.559 Pain in unspecified hip; F41.9 Anxiety disorder, unspecified; E78.5 Hyperlipidemia, unspecified; D64.9 Anemia, unspecified; R53.83 Other fatigue
CPT/HCPCS: 36415; 80053; 80061; 83036; 83525; 83540; 84436; 84443; 84481; 85025

== ENCOUNTER 2024-11-27 10:41 | Outpatient (OUT) | payer OTHER, SELFPAY ==
--- NOTE | 2024-11-27 10:45 | MM_ITS ---
Patient Name: JESSY BARBER MR#: [id number] : 1960 Exam Date: 11/27/2024 Ordering Doctor: DR NIXON MCINTYRE . RADIOLOGY REPORT PROCEDURE: MM TOMOSYNTHESIS SCREENING BI COMPARISON: MM TOMOSYNTHESIS SCREENING BI, 11/25/2023. MG MAMM SCREEN 3D SOFIA CAD, 03/19/2022. MG MAMM SCREEN 3D SOFIA CAD, 03/06/2021. MG MAMM SOFIA SCRN W CAD DIG, 07/04/2013. INDICATIONS: Screening Calculator Name NCI Breast Cancer Risk Assessment Tool 5 Year Breast Cancer Risk 2.00% Lifetime Breast Cancer Risk 7.30% Personal Breast Cancer No Personal Ovarian Cancer No Treatments None Family Cancers Sister with renal cancer at age ~45; Aunt-paternal with breast cancer at age ~50. LOCATION: [facility] BREAST COMPOSITION: There are scattered areas of fibroglandular density. FINDINGS: DIAGNOSTIC CATEGORY 1--NEGATIVE. RIGHT BREAST: No significant suspicious finding. LEFT BREAST: No significant suspicious finding. RECOMMENDATIONS: ROUTINE MAMMOGRAM AND CLINICAL EVALUATION IN 12 MONTHS. Dictated by: Tang Goldman DO on 11/28/2024 at 15:22 Approved by: Tang Goldman DO on 11/28/2024 at 15:24
== END 2024-11-27 10:42 | disposition home or self-care (01) ==
LOC: MAMMO 10:41
PROVIDERS: PCP Family Medicine; Visit Provider Family Medicine
DX: Z12.31 Encounter for screening mammogram for malignant neoplasm of breast (principal); I10 Essential (primary) hypertension; G47.30 Sleep apnea, unspecified; M25.559 Pain in unspecified hip; F41.9 Anxiety disorder, unspecified; E11.9 Type 2 diabetes mellitus without complications; Z80.51 Family history of malignant neoplasm of kidney; Z80.3 Family history of malignant neoplasm of breast
CPT/HCPCS: 77063; 77067